=== PATIENT | female | born 1970 | race Caucasian/White ===

== ENCOUNTER 2018-09-26 08:04 | Observation (INO) ==
[2018-09-26] MEDS ORDERED: ASPIRIN CHEW 324 MG PO STA (08:17)
--- NOTE | 2018-09-26 08:19 | Emergency Department Note ---
Entered by Malissa Acevedo acting as a scribe for Dominic Parikh MD History of Present Illness General Chief complaint: Cardiac Assessment Stated complaint: CHEST PRESSURE- HX OF HTN Time Seen by Provider: 09/26/18 08:08 Source: patient History of Present Illness Provider complaint: chest pressure Onset (ago): hour(s) 1 Location: chest Radiation: extremity (shoulder) Quality: + other (pressure) Associated symptoms: no diaphoresis, no nausea/vomiting and no shortness of breath The patient is a 48 year old female who presents to the Emergency Room with complaints of chest pressure beginning this morning 1 hour prior to arrival. The patient states that the pressure also radiates to her shoulder. She states that she "does not feel right" and states that she has not had this before. She reports a history of hypertension and states that she is pre-diabetic. The patient denies having shortness of breath and denies having pain when she breaths. She also denies having nausea, vomiting, and diaphoresis. The patient states that she was burping on the way here and states that she has not eaten anything unusual lately. The patient denies recent travel or trauma, and also denies having swelling in her legs. The patient states that she did not take aspirin prior to arrival. She denies a history of a stress test or a catheterization. Home Medications Home Medications Medication Instructions Recorded Confirmed Type atorvastatin [Lipitor] 40 mg PO HS 09/26/18 09/26/18 History hydrochlorothiazide 25 mg PO DAILY 09/26/18 09/26/18 History lisinopril 10 mg PO DAILY 09/26/18 09/26/18 History metformin 500 mg PO BID 09/26/18 09/26/18 History Allergies Allergy/AdvReac Type Severity Reaction Status Date / Time No Known Allergies Allergy Unverified 09/26/18 08:16 Past Med/Surg History Medical History Obesity (Chronic) Hyperlipidemia (Chronic) Diabetes mellitus type 2 in obese (Chronic) HTN (hypertension) (Chronic) Anal carcinoma Aortic stenosis Atrial fibrillation ESRD (end stage renal disease) Lupus 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) PVD (peripheral vascular disease) Renal transplant disorder SAH (subarachnoid hemorrhage) Surgical History Hx of cardiac cath Family History Other Heart disease Social History Current Living Situation: Spouse and Family Other Information That Helps Us Care for You: No Feels Safe at Home: Yes Safety Concerns: Feels Safe At This Time Smoking Status: Former smoker Do You Dip or Chew Tobacco: No Second Hand Exposure: No Tobacco Cessation Education Requested by Patient: No Hx Alcohol Use: Yes Alcohol Intake Frequency: other Hx Substance Use: No Beliefs That Will Affect Care: None Preferred Language: Barbadian Communication Ability: Effective Senior Sales Operations Manager Required: No Review of Systems See HPI for pertinent positives & negatives. and A total of 10 systems reviewed and were otherwise negative Physical Exam Vital Signs Vital Signs - 24 hr 09/26/18 08:10 09/26/18 08:13 09/26/18 08:20 Temperature 36.8 C Temperature Source Oral Sepsis Recent Fever Within 48 Hours No Sepsis Action Taken by Nursing No Action Required Pulse Rate 119 H 115 H Pulse Rate [Apical] Pulse Rhythm [Apical] Pulse Strength [Apical] Respiratory Rate 19 22 Respiratory Effort / Characteristics Non-Labored Non-Labored Respiratory Depth Normal Normal Respiratory Pattern Blood Pressure 160/111 H 160/117 H Blood Pressure [Right Arm] Blood Pressure Mean 127 131 Blood Pressure Mean [Right Arm] Blood Pressure Position [Right Arm] Pulse Oximetry 97 97 Oxygen Delivery Method Room Air 09/26/18 08:30 09/26/18 08:53 09/26/18 09:00 Temperature Temperature Source Sepsis Recent Fever Within 48 Hours Sepsis Action Taken by Nursing Pulse Rate 100 H 101 H 96 H Pulse Rate [Apical] Pulse Rhythm [Apical] Pulse Strength [Apical] Respiratory Rate 22 17 9 L Respiratory Effort / Characteristics Respiratory Depth Respiratory Pattern Blood Pressure 138/96 Blood Pressure [Right Arm] Blood Pressure Mean 110 Blood Pressure Mean [Right Arm] Blood Pressure Position [Right Arm] Pulse Oximetry 96 Oxygen Delivery Method 09/26/18 09:08 09/26/18 09:30 09/26/18 10:00 Temperature Temperature Source Sepsis Recent Fever Within 48 Hours Sepsis Action Taken by Nursing Pulse Rate 96 H 99 H 102 H Pulse Rate [Apical] Pulse Rhythm [Apical] Pulse Strength [Apical] Respiratory Rate 19 26 H 19 Respiratory Effort / Characteristics Respiratory Depth Respiratory Pattern Blood Pressure 121/106 H 120/78 123/90 Blood Pressure [Right Arm] Blood Pressure Mean 111 92 101 Blood Pressure Mean [Right Arm] Blood Pressure Position [Right Arm] Pulse Oximetry 93 95 95 Oxygen Delivery Method 09/26/18 10:30 09/26/18 11:17 09/26/18 11:19 Temperature Temperature Source Sepsis Recent Fever Within 48 Hours Sepsis Action Taken by Nursing Pulse Rate 95 H 97 H 102 H Pulse Rate [Apical] Pulse Rhythm [Apical] Pulse Strength [Apical] Respiratory Rate 19 7 L 18 Respiratory Effort / Characteristics Respiratory Depth Respiratory Pattern Blood Pressure 135/92 127/88 Blood Pressure [Right Arm] Blood Pressure Mean 106 101 Blood Pressure Mean [Right Arm] Blood Pressure Position [Right Arm] Pulse Oximetry 94 96 95 Oxygen Delivery Method 09/26/18 11:30 09/26/18 12:00 09/26/18 12:30 Temperature Temperature Source Sepsis Recent Fever Within 48 Hours Sepsis Action Taken by Nursing Pulse Rate 98 H 99 H 108 H Pulse Rate [Apical] Pulse Rhythm [Apical] Pulse Strength [Apical] Respiratory Rate 16 17 18 Respiratory Effort / Characteristics Respiratory Depth Respiratory Pattern Blood Pressure 120/82 133/72 130/86 Blood Pressure [Right Arm] Blood Pressure Mean 94 92 100 Blood Pressure Mean [Right Arm] Blood Pressure Position [Right Arm] Pulse Oximetry 94 94 94 Oxygen Delivery Method 09/26/18 12:31 09/26/18 13:00 09/26/18 13:08 Temperature Temperature Source Sepsis Recent Fever Within 48 Hours Sepsis Action Taken by Nursing Pulse Rate 101 H Pulse Rate [Apical] 105 H Pulse Rhythm [Apical] Regular Pulse Strength [Apical] Normal Respiratory Rate 18 16 Respiratory Effort / Characteristics Non-Labored Respiratory Depth Normal Respiratory Pattern Blood Pressure 126/74 Blood Pressure [Right Arm] 130/86 Blood Pressure Mean 91 Blood Pressure Mean [Right Arm] 100 Blood Pressure Position [Right Arm] Sitting Pulse Oximetry 94 94 Oxygen Delivery Method Room Air Room Air 09/26/18 13:25 09/26/18 13:40 09/26/18 14:22 Temperature 37.2 C Temperature Source Oral Sepsis Recent Fever Within 48 Hours Sepsis Action Taken by Nursing Pulse Rate Pulse Rate [Apical] 118 H 116 H 106 H Pulse Rhythm [Apical] Regular Regular Regular Pulse Strength [Apical] Normal Normal Normal Respiratory Rate 18 Respiratory Effort / Characteristics Non-Labored Respiratory Depth Normal Respiratory Pattern Regular Blood Pressure Blood Pressure [Right Arm] 125/92 110/77 138/85 Blood Pressure Mean Blood Pressure Mean [Right Arm] 103 88 102 Blood Pressure Position [Right Arm] Sitting Sitting Sitting Pulse Oximetry 98 Oxygen Delivery Method Room Air General: Non-ill appearing middle aged female in no acute distress. HEENT: Normal cephalic atraumatic. Pupils are equal round and reactive to light. Extraocular movements are intact. Oropharynx is pink with moist mucous membranes. No swelling of the mouth lips or tongue. Neck: Supple with a midline trachea. No meningeal signs or stiffness, no JVD or bruits. No Stridor. Chest: Clear to auscultation bilaterally. No wheezes or rhonchi. No increased work of breathing. Heart: regular rate and rhythm. Abdomen: Soft nontender, nondistended without rebound guarding or rigidity. Extremities: No cyanosis clubbing or edema. No calf tenderness or assymetry Spine/Back. Non tender to palpation. No CVA tenderness Skin: Good turgor without rashes. Neurologic exam: Cranial nerves two through 12 are intact. Motor and sensation are intact and symmetrical throughout. Course 0809: Past medical records reviewed. The patient was evaluated in room A9B, and a complete history and physical examination were performed. 0856: I checked on the patient. She feels better. Her heart rate and blood pressure have come down. 0946: I reassessed the patient. 1020: I updated the patient. She appears comfortable. She verbalized agreement and understanding of the treatment plan and will be admitted. 1031: I discussed the patient's case with Dr. Cleaning who will evaluate the patient for further management. Consultations Consultation #1: Dr. Cleaning Time: 10:31 Administered Medications Insulin Aspart (Novolog Flexpen) 0 units SC ACHS [facility] Stop: 10/26/18 13:22 Last Admin: 09/26/18 14:13 Dose: 1 units Discontinued Medications Aspirin (Aspirin) 324 mg PO NOW STA Stop: 09/26/18 08:18 Last Admin: 09/26/18 08:34 Dose: 324 mg Metoprolol Tartrate (Lopressor) 25 mg PO Q8H [facility] Stop: 10/26/18 13:59 Last Admin: 09/26/18 14:35 Dose: 12.5 mg Morphine Sulfate (Morphine Sulfate) 2 mg IV NOW STA Stop: 09/26/18 11:04 Last Admin: 09/26/18 11:19 Dose: 2 mg Nitroglycerin (Nitrostat) Confirm Administered Dose 0.4 mg .ROUTE .[facility] Stop: 09/26/18 13:28 Last Admin: 09/26/18 13:28 Dose: 0.4 mg Potassium Chloride (Klor-Con M20) 40 meq PO QAM HARIS Stop: 10/26/18 10:29 Last Admin: 09/26/18 13:29 Dose: Not Given Potassium Chloride (Klor-Con M20) 40 meq PO NOW STA Stop: 09/26/18 11:06 Last Admin: 09/26/18 12:27 Dose: 40 meq Medical Decision Making Differential Diagnosis The patient is a 48 year old female who presents to the ED with chest pressure. Differential diagnosis includes acute coronary syndrome, arrhythmia, PE, pulmonary disease, aortic disease, anxiety, GERD, electrolyte or metabolic abnormalities. Medical Records Attestation: I reviewed the patient's medical records. Home Medications Current Medication List: was personally reviewed by me Laboratory Data Attestation: I reviewed the patient's lab results. Result diagrams: 09/26/18 09:08 09/26/18 09:08 Lab Results 09/26/18 09/26/18 09/26/18 Range/Units 09:08 09:08 09:08 WBC 7.22 (4.8-10.8) K/uL RBC 4.83 (4.2-5.4) M/uL Hgb 14.2 (12.0-16.0) g/dL Hct 41.9 (37-47) % MCV 86.7 (80-100) fL MCH 29.4 (25-34) pg MCHC 33.9 (32-36) g/dL RDW Std Deviation 42.6 (36.4-46.3) fL RDW Coeff of Beatriz 13.4 (11.5-14.5) % Plt Count 205 (130-400) K/uL MPV 11.8 H (7.4-10.4) fL Immature Gran % (Auto) 0.3 % Neut % (Auto) 69.3 % Lymph % (Auto) 24.9 % Winston % (Auto) 3.6 % Eos % (Auto) 1.5 % Baso % (Auto) 0.4 % Immature Gran # (Auto) 0.02 (0.00-0.02) K/uL Neut # (Auto) 5.00 (1.4-6.5) K/uL Lymph # (Auto) 1.80 (1.2-3.4) K/uL Winston # (Auto) 0.26 (0.11-0.59) K/uL Eos # (Auto) 0.11 (0-0.5) K/uL Baso # (Auto) 0.03 (0-0.2) K/uL PT Cancelled INR Cancelled APTT Cancelled PTT Ratio Cancelled D-Dimer Cancelled Sodium 136 (136-145) mmol/L Potassium 3.2 L (3.5-5.1) mmol/L Chloride 100 (98-107) mmol/L Carbon Dioxide 26 (21-32) mmol/L Anion Gap 10.0 (3-11) BUN 11 (7-18) mg/dl Creatinine 0.69 (0.6-1.2) mg/dl Est Cr Clr Drug Dosing Not Reportable Est GFR ( Amer) 121.0 Est GFR (Non-Af Amer) 104.4 BUN/Creatinine Ratio 15.4 (10-20) Glucose 195 H (70-99) mg/dl POC Glucose (70-99) Calcium 8.7 (8.5-10.1) mg/dl Total Bilirubin 0.6 (0.1-1) mg/dl AST 38 H (15-37) U/L ALT 47 (12-78) U/L Alkaline Phosphatase 100 (45-117) U/L Total Creatine Kinase 57 (26-192) U/L CK-MB (CK-2) < 1.0 (0.5-3.6) ng/ml CK/CKMB % Calc TNP POC Troponin I (0-0.045) ng/ml Troponin I < 0.015 (0-0.045) ng/ml Total Protein 7.5 (6.4-8.2) gm/dl Albumin 3.6 (3.4-5.0) gm/dl Globulin 3.9 (2.5-4.0) gm/dl Albumin/Globulin Ratio 0.9 (0.9-2) Lipase 134 (73-393) U/L 09/26/18 09/26/18 09/26/18 Range/Units 09:15 09:40 13:35 WBC (4.8-10.8) K/uL RBC (4.2-5.4) M/uL Hgb (12.0-16.0) g/dL Hct (37-47) % MCV (80-100) fL MCH (25-34) pg MCHC (32-36) g/dL RDW Std Deviation (36.4-46.3) fL RDW Coeff of Beatriz (11.5-14.5) % Plt Count (130-400) K/uL MPV (7.4-10.4) fL Immature Gran % (Auto) % Neut % (Auto) % Lymph % (Auto) % Winston % (Auto) % Eos % (Auto) % Baso % (Auto) % Immature Gran # (Auto) (0.00-0.02) K/uL Neut # (Auto) (1.4-6.5) K/uL Lymph # (Auto) (1.2-3.4) K/uL Winston # (Auto) (0.11-0.59) K/uL Eos # (Auto) (0-0.5) K/uL Baso # (Auto) (0-0.2) K/uL PT 11.0 INR 1.1 APTT 24.3 PTT Ratio 0.9 D-Dimer < 190 Sodium (136-145) mmol/L Potassium (3.5-5.1) mmol/L Chloride (98-107) mmol/L Carbon Dioxide (21-32) mmol/L Anion Gap (3-11) BUN (7-18) mg/dl Creatinine (0.6-1.2) mg/dl Est Cr Clr Drug Dosing Est GFR ( Amer) Est GFR (Non-Af Amer) BUN/Creatinine Ratio (10-20) Glucose (70-99) mg/dl POC Glucose 138 H (70-99) Calcium (8.5-10.1) mg/dl Total Bilirubin (0.1-1) mg/dl AST (15-37) U/L ALT (12-78) U/L Alkaline Phosphatase (45-117) U/L Total Creatine Kinase (26-192) U/L CK-MB (CK-2) (0.5-3.6) ng/ml CK/CKMB % Calc POC Troponin I < 0.03 (0-0.045) ng/ml Troponin I (0-0.045) ng/ml Total Protein (6.4-8.2) gm/dl Albumin (3.4-5.0) gm/dl Globulin (2.5-4.0) gm/dl Albumin/Globulin Ratio (0.9-2) Lipase (73-393) U/L 09/26/18 Range/Units 13:50 WBC (4.8-10.8) K/uL RBC (4.2-5.4) M/uL Hgb (12.0-16.0) g/dL Hct (37-47) % MCV (80-100) fL MCH (25-34) pg MCHC (32-36) g/dL RDW Std Deviation (36.4-46.3) fL RDW Coeff of Beatriz (11.5-14.5) % Plt Count (130-400) K/uL MPV (7.4-10.4) fL Immature Gran % (Auto) % Neut % (Auto) % Lymph % (Auto) % Winston % (Auto) % Eos % (Auto) % Baso % (Auto) % Immature Gran # (Auto) (0.00-0.02) K/uL Neut # (Auto) (1.4-6.5) K/uL Lymph # (Auto) (1.2-3.4) K/uL Winston # (Auto) (0.11-0.59) K/uL Eos # (Auto) (0-0.5) K/uL Baso # (Auto) (0-0.2) K/uL PT INR APTT PTT Ratio D-Dimer Sodium (136-145) mmol/L Potassium (3.5-5.1) mmol/L Chloride (98-107) mmol/L Carbon Dioxide (21-32) mmol/L Anion Gap (3-11) BUN (7-18) mg/dl Creatinine (0.6-1.2) mg/dl Est Cr Clr Drug Dosing Est GFR ( Amer) Est GFR (Non-Af Amer) BUN/Creatinine Ratio (10-20) Glucose (70-99) mg/dl POC Glucose (70-99) Calcium (8.5-10.1) mg/dl Total Bilirubin (0.1-1) mg/dl AST (15-37) U/L ALT (12-78) U/L Alkaline Phosphatase (45-117) U/L Total Creatine Kinase (26-192) U/L CK-MB (CK-2) (0.5-3.6) ng/ml CK/CKMB % Calc POC Troponin I (0-0.045) ng/ml Troponin I < 0.015 (0-0.045) ng/ml Total Protein (6.4-8.2) gm/dl Albumin (3.4-5.0) gm/dl Globulin (2.5-4.0) gm/dl Albumin/Globulin Ratio (0.9-2) Lipase (73-393) U/L Imaging Data Radiologist's Impression: Radiology results as stated below per my review and the radiologist's interpretation: XR chest 1V portable CLINICAL HISTORY: Chest pain. COMPARISON STUDY: No previous studies for comparison. FINDINGS: A 2.5 cm chondroid lesion within the left humeral head statistically reflects an enchondroma. There is no pneumothorax or pleural effusion. Mild left basilar opacity favors atelectasis. There is mild cardiomegaly without evidence for pulmonary edema. IMPRESSION: 1. Mild left basilar opacity which favors atelectasis. 2. Mild cardiomegaly without evidence for pulmonary edema. Electronically signed by: Solo Meeks M.D. 09/26/2018 9:20 AM ECG Data Attestation: I personally reviewed and interpreted this ECG as follows: Indication: chest pain Rate (beats per minute): 114 Rhythm: sinus tachycardia Findings: no PAC, no PVC, no ST depression, no ST elevation, no acute ischemic change and no ectopy Comparison ECG Date: no prior available Additional Comments: repeat ECG: NSR, 90, no ischemia, no ectopy, no significant change from first ECG Blood Pressure Blood Pressure Findings: Elevated blood pressure Blood Pressure Disposition: further management by hospitalist [facility] Narrative This patient comes in as described above. She was placed in room A9. She has complaints of chest pressure. She looks well on exam. she is mildly tachycardic and hypertensive. She does have history of high blood pressure. Her initial EKG does not suggest acute coronary syndrome or significant arrhythmia. IV access was established was given aspirin 324 mg chewable multiple blood testing was obtained including cardiac biomarkers as well as d- dimer. She was reassessed frequently. D-dimer was within normal limits and a low pretest probability setting makes PE highly unlikely. Her second EKG does not show any ischemic changes and no progression compared to EKG #1. Initial cardiac biomarkers are negative. There is no acute ocular metabolic ab normalities. Chest x-ray was unremarkable and does not suggest congestive heart failure pneumonia or pneumothorax. She does have several cardiac risk factors including hypertension, type II borderline diabetes, increased cholesterol and family history. Given this and her presentation, I do think she warrants a observation/cardiac rule out. I did consult the [facility] to see her in the ER for these measures. Impression & Plan Chest pain, precordial Discharge Plan Visit Data *Final* Discharge Date/Time: 09/26/18 13:08 Chief Complaint: Cardiac Assessment Stated Complaint: CHEST PRESSURE- HX OF HTN ED Provider: Dominic Parikh Discharge Problem: Chest pain, precordial Patient Disposition: Admitted As Inpatient Discharge Instructions Interventions: ED Discharge Assessment Last Done: 09/26/18 13:08 The scribe's documentation has been prepared under my direction and personally reviewed by me in its entirety. I confirm that the note above accurately reflects all work, treatment, procedures, and medical decision making performed by me.
[2018-09-26 09:18] LABS: Basophils # (auto) 0.03 K/uL (0-0.2); Basophils % (auto) 0.4 %; Eosinophils # (auto) 0.11 K/uL (0-0.5); Eosinophils % (auto) 1.5 %; Hematocrit (blood only) 41.9 % (37-47); Hemoglobin 14.2 g/dL (12.0-16.0); Immature Granulocytes # (auto) 0.02 K/uL (0.00-0.02); Immature Granulocytes % (auto) 0.3 %; Lymphocytes % (auto) 24.9 %; Mean Corpuscular Hgb Conc 33.9 g/dL (32-36); Mean Corpuscular Volume 86.7 fL (80-100); Mean Platelet Volume 11.8 fL (7.4-10.4); Monocytes # (auto) 0.26 K/uL (0.11-0.59); Monocytes % (auto) 3.6 %; Neutrophils % (auto) 69.3 %; Platelet Count 205 K/uL (130-400); RDW Coefficient of Variation 13.4 % (11.5-14.5); RDW Standard Deviation 42.6 fL (36.4-46.3); Red Blood Count 4.83 M/uL (4.2-5.4); White Blood Count 7.22 K/uL (4.8-10.8)
--- NOTE | 2018-09-26 09:21 | XRay Report ---
XR chest 1V portable CLINICAL HISTORY: Chest pain. COMPARISON STUDY: No previous studies for comparison. FINDINGS: A 2.5 cm chondroid lesion within the left humeral head statistically reflects an enchondrom a. There is no pneumothorax or pleural effusion. Mild left basilar opacity favors atelectasis. There is mild cardiomegaly without evidence for pulmonary edema. IMPRESSION: 1. Mild left basilar opacity which favors atelectasis. 2. Mild cardiomegaly without evidence for pulmonary edema. Electronically signed by: Solo Meeks M.D. 09/26/2018 9:20 AM
[2018-09-26 09:32] LABS: Alanine Aminotransferase 47 U/L (12-78); Albumin Level 3.6 gm/dl (3.4-5.0); Aspartate Aminotransferase 38 U/L (15-37); BUN Creatinine Ratio 15.4 (10-20); Blood Urea Nitrogen 11 mg/dl (7-18); Calcium 8.7 mg/dl (8.5-10.1); Carbon Dioxide 26 mmol/L (21-32); Chloride 100 mmol/L (98-107); Est GFR (Non-African American) 104.4; Glucose 195 mg/dl (70-99); Potassium 3.2 mmol/L (3.5-5.1); Sodium 136 mmol/L (136-145)
[2018-09-26 09:36] LABS: Albumin Globulin Ratio 0.9 (0.9-2); Alkaline Phosphatase 100 U/L (45-117); Bilirubin,Total 0.6 mg/dl (0.1-1); Creatine Kinase 57 U/L (26-192); Creatine Kinase MB < 1.0 ng/ml (0.5-3.6); Globulin 3.9 gm/dl (2.5-4.0); Total Protein 7.5 gm/dl (6.4-8.2); Troponin I < 0.015 ng/ml (0-0.045)
[2018-09-26 10:03] LABS: D Dimer < 190 ug/L FEU (0-500); INR 1.1 (0.9-1.1); Partial Thromboplastin Ratio 0.9; Partial Thromboplastin Time 24.3 Seconds (21.0-31.0)
[2018-09-26] MEDS ORDERED: POTASSIUM CHLORIDE 20 MEQ TABCR PO SCH (10:30)
[2018-09-26] MEDS ORDERED: MoRPHine SULFATE 2 MG/ML CARP IV STA (11:03)
[2018-09-26] MEDS ORDERED: POTASSIUM CHLORIDE 20 MEQ TABCR PO STA (11:05)
--- NOTE | 2018-09-26 11:38 | History & Physical Report ---
Date of Service September 26, 2018 Assessment & Plan (1) Chest pain, precordial: Risk factors for CAD include diabetes, obesity, hyperlipidemia, family history. She is compliant her Lipitor. She is a non-smoker. She has not noticed any decline in activity status in the last 6 months but admittedly is not very active in general. Initial workup is not consistent with acute ischemia. However, chest pressure is still present. Will give some morphine now and try nitro as needed. Monitor on telemetry. Consult cardiology for possible stress test in the morning for risk stratification after rule out ACS. Continue Lipitor. Aspirin 325 was already given. Continue aspirin 81 while inpatient. (2) Diabetes mellitus type 2 in obese: Last A1c in December 2017 was 7. Will repeat A1c in the morning. While inpatient will hold metformin and continue Lantus as well as NovoLog for carb coverage as well as sliding scale coverage. (3) Hyperlipidemia: Compliant with Lipitor 40. Continue this as inpatient. (4) Hypokalemia: Possibly related to diuretics. No recent vomiting or diarrhea. Replace. Check mag in a.m. (5) HTN (hypertension): Initially was elevated but this was on ER intake. She is now more controlled without medication. Continue her home medications and monitor overnight. (6) Obesity: (7) DVT prophylaxis: Lovenox Full code Disposition-to telemetry, likely home in a.m. as long as rule out overnight. Pending cardiology evaluation. DO [facility] History of Present Illness Chief Complaint: Chest pressure Primary Care Provider: Joce Bautista The patient is a 48-year-old diabetic, non-smoker female who presents with chest pressure that began approximately 2 hours prior to arrival. Patient reports waking up this morning and feeling fine. She then took a shower and went into her living room and sat down when she noticed the chest pressure. She describes it as pressure not a pain. It is located in the left anterior chest and radiates to her left shoulder. There is no associated symptoms including no shortness of breath, lightheadedness, nausea, palpitations, numbness or tingling in her fingers, diaphoresis. She reports that exertion is not been worsening it, and there is no other alleviating or triggering factors. She denies a history of chest pain in the past. She is a lifelong non- smoker. Her father had heart problems beginning in his 50s and ultimately underwent a CABG for heart disease. It was reported that symptoms had resolved prior to arrival however the patient still reports some chest pressure that has never eased up since arrival it is been going on for a couple of hours. Recent diagnosis of diabetes with an A1c of 7 back in spring 2017. She is on metformin 500 twice daily. Allergies Allergy/AdvReac Type Severity Reaction Status Date / Time No Known Allergies Allergy Unverified 09/26/18 08:16 Home Medications Home Medications Medication Instructions Recorded Confirmed Type atorvastatin [Lipitor] 40 mg PO HS 09/26/18 09/26/18 History hydrochlorothiazide 25 mg PO DAILY 09/26/18 09/26/18 History lisinopril 10 mg PO DAILY 09/26/18 09/26/18 History metformin 500 mg PO BID 09/26/18 09/26/18 History Past Med/Surg History Medical History Obesity (Chronic) Hyperlipidemia (Chronic) Diabetes mellitus type 2 in obese (Chronic) HTN (hypertension) (Chronic) Family History Other Heart disease Social History Current Living Situation: Spouse Feels Safe at Home: Yes Smoking Status: Never smoker Review of Systems At least 10 systems were reviewed and negative except as indicated in HPI above. Physical Exam 2 Vital Signs (Past 24 Hours): Last Vital Signs Temp 36.8 C 09/26/18 08:13 Pulse 102 H 09/26/18 11:19 Resp 18 09/26/18 11:19 BP 127/88 09/26/18 11:17 Pulse Ox 95 09/26/18 11:19 CONSTITUTIONAL: obese, vitals as above, generally well-appearing EYES: PERRL, normal conjuctivae, no scleral icterus ENT: oropharynx clear, MMM NECK: trachea midline RESPIRATORY: clear to auscultation bilaterally, no crackles, rales or wheezes, normal respiratory effort CARDIOVASCULAR: regular rate and rhythm, S1 and 2 heard without murmurs, gallops or rubs, no JVD, no peripheral edema CHEST: inspection of chest was normal GASTROINTESTINAL: normal bowel sounds, soft, nontender, nondistended MUSCULOSKELETAL: strength 5/5 throughout, head is normocephalic and atraumatic , normal palpation of chest wall without tenderness SKIN: warm and dry NEUROLOGIC: No facial palsy, no dysarthria. CN 2-12 grossly intact, normal cognition, normal speech PSYCHIATRIC: alert cooperative and oriented to person, place and time. Euthymic mood, makes good eye contact, language intact, recent and remote memory grossly intact. Results & Data Laboratory Results Short CBC 09/26/18 Range/Units 09:08 WBC 7.22 (4.8-10.8) K/uL Hgb 14.2 (12.0-16.0) g/dL Hct 41.9 (37-47) % Plt Count 205 (130-400) K/uL BMP 09/26/18 09:08 Sodium 136 Potassium 3.2 L Chloride 100 Carbon Dioxide 26 BUN 11 Creatinine 0.69 Glucose 195 H Calcium 8.7 Cardiac Enzymes 09/26/18 Range/Units 09:08 Total Creatine Kinase 57 (26-192) U/L CK-MB (CK-2) < 1.0 (0.5-3.6) ng/ml Troponin I < 0.015 (0-0.045) ng/ml Liver Function 09/26/18 Range/Units 09:08 Total Bilirubin 0.6 (0.1-1) mg/dl AST 38 H (15-37) U/L ALT 47 (12-78) U/L Alkaline Phosphatase 100 (45-117) U/L Albumin 3.6 (3.4-5.0) gm/dl Code Status & VTE Plan Code Status Full code VTE Prophylaxis Plan VTE Prophylaxis will be ordered: Yes Critical Care Time Critical Care Time: No
[2018-09-26] MEDS ORDERED: PNEUMOCOCCAL ADMINISTRATION CHARGE ONE (12:15)
[2018-09-26] MEDS ORDERED: PNEUMOCOCCAL POLYSACCHARIDES 25 MCG/0.5 ML VIAL/SYR IM ONE (12:15)
[2018-09-26] MEDS ORDERED: NITROGLYCERIN SL 0.4 MG/TAB TAB SL PRN (13:23)
[2018-09-26] MEDS ORDERED: GLUCAGON FOR INJ 1 MG VIAL SQ PRN (13:23)
[2018-09-26] MEDS ORDERED: ACETAMINOPHEN 325 MG TAB PO PRN (13:23)
[2018-09-26] MEDS ORDERED: GLUCOSE 40% GEL 15 GM TUBE PO PRN (13:23)
[2018-09-26] MEDS ORDERED: DEXTROSE 50% 50 ML SYRINGE IV PRN (13:23)
[2018-09-26] MEDS ORDERED: CARBOHYDRATES FOR HYPOGLYCEMIA PO PRN (13:23)
[2018-09-26] MEDS ORDERED: GLUCOSE 10 TABS/TUBE PO PRN (13:23)
[2018-09-26] MEDS ORDERED: MoRPHine SULFATE 2 MG/ML CARP IV PRN (13:23)
[2018-09-26] MEDS ORDERED: ONDANSETRON INJ 2 MG/ML 2 ML VIAL IV PRN (13:23)
[2018-09-26] MEDS ORDERED: POLYETHYLENE (MIRALAX) 17 GM PACK PO PRN (13:23)
[2018-09-26] MEDS ORDERED: NITROGLYCERIN SL 0.4 MG/TAB TAB ONE (13:27)
--- NOTE | 2018-09-26 13:57 | Cardiology Consultation ---
Date of Consultation September 26, 2018 Assessment & Plan (1) STEMI (ST elevation myocardial infarction): Patient presents emergency department with initially right shoulder discomfort which is possibly musculoskeletal origin. She also noted to have acute shortness of breath with development of left scapular pain which is ongoing. Her ECG demonstrates presence of a new left bundle branch block. Initial troponins are elevated. In light of ongoing symptoms, ECG changes, and elevated troponin patient will be taken to the cardiac catheterization lab urgently for coronary angiography. (2) New onset left bundle branch block (LBBB): (3) PVD (peripheral vascular disease): Diminished peripheral pulses noted on examination. 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 (4) Paroxysmal atrial fibrillation: Currently sinus rhythm. INR is subtherapeutic at 1.9. (5) Aortic stenosis: Moderate aortic stenosis per most recent echocardiogram performed November 2017. History of Present Illness Reason for Consultation: Left scapular pain, elevated troponin, new left bundle branch block Requesting Physician: Dr. Loretta Carpio Attending Physician: Loretta Carpio DO History of Present Illness Patient presented to the emergency department with right-sided shoulder discomfort. Discomfort began last evening. Pain became quite severe. Notes associated severe shortness of breath which was transient. She came to the emergency department where she was treated with intravenous morphine. Initial ECG demonstrates new left bundle branch block pattern. Initial troponin 0 0.70. Patient subsequently developed left-sided scapular discomfort rated 6/ 10. There is associated shortness of breath. She is feeling quite anxious without diaphoresis. Denies any substernal chest pressure at this time. Ongoing left scapular pain noted. Complex history listed below. Allergies Allergy/AdvReac Type Severity Reaction Status Date / Time No Known Allergies Allergy Unverified 09/26/18 08:16 Home Medications Home Medications Medication Instructions Recorded Confirmed Type atorvastatin [Lipitor] 40 mg PO HS 09/26/18 09/26/18 History hydrochlorothiazide 25 mg PO DAILY 09/26/18 09/26/18 History lisinopril 10 mg PO DAILY 09/26/18 09/26/18 History metformin 500 mg PO BID 09/26/18 09/26/18 History Patient History Medical History Obesity (Chronic) Hyperlipidemia (Chronic) Diabetes mellitus type 2 in obese (Chronic) HTN (hypertension) (Chronic) Anal carcinoma Aortic stenosis Atrial fibrillation ESRD (end stage renal disease) Lupus 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) PVD (peripheral vascular disease) Renal transplant disorder SAH (subarachnoid hemorrhage) Surgical History Hx of cardiac cath Family History Other Heart disease Social History Current Living Situation: Spouse and Family Other Information That Helps Us Care for You: No Feels Safe at Home: Yes Safety Concerns: Feels Safe At This Time Smoking Status: Former smoker Do You Dip or Chew Tobacco: No Second Hand Exposure: No Tobacco Cessation Education Requested by Patient: No Hx Alcohol Use: Yes Alcohol Intake Frequency: other Hx Substance Use: No Beliefs That Will Affect Care: None Preferred Language: Montserratian Communication Ability: Effective 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 Physical Exam 2 Vital Signs (Past 24 Hours): Last Vital Signs Temp 37.2 C 09/26/18 13:25 Pulse 116 H 09/26/18 13:40 Resp 18 09/26/18 13:25 BP 110/77 09/26/18 13:40 Pulse Ox 98 09/26/18 13:25 Physical Exam: General: NAD, AAO x3, well nourished. Chronically ill. HEENT : Normocephalic. Atraumatic. Conjunctiva pink, no scleral icterus. Neck: No carotid bruits, the carotid upstrokes are brisk. No JVD. No HJR Heart: Regular normal S-1 and S-2 no S-3 or S-4 gallop. 2/6 systolic ejection murmur heard best at the right second intercostal space. PMI is not displaced. No RV heave. Lungs: Clear bilateral without rales , rhonchi, or wheeze. Abdomen: Normal bowel sounds. Soft. Nontender. No masses or organomegaly. No abdominal bruits. Extremities: 1= B/L ankle and pedal edema. Pulses: Diminished radial pulses bilaterally. 1/4 right femoral arterial pulse, 1/4 left femoral arterial pulse. Dorsalis pedis =2/4, posterior tibial=2/4. Neuro: Cranial nerves grossly intact. No focal motor deficit. _ (1) STEMI (ST elevation myocardial infarction) Involved coronary artery: unspecified coronary artery Qualified Code(s): I21.3 - ST elevation (STEMI) myocardial infarction of unspecified site (2) Aortic stenosis Cardiac valve disease etiology: nonrheumatic Qualified Code(s): I35.0 - Nonrheumatic aortic (valve) stenosis
[2018-09-26] MEDS ORDERED: NITROGLYCERIN 2% OINTMENT 30GM TUBE EXT SCH (14:00)
[2018-09-26] MEDS ORDERED: METOPROLOL TARTRATE 25 MG TAB PO SCH (14:00)
[2018-09-26] MEDS: INSULIN ASPART 100 UNITS/ML 3 ML PEN SC SCH ×3 (14:13→21:15)
[2018-09-26] MEDS ORDERED: METOPROLOL TARTRATE 1 MG/ML VIAL IV STA (14:15)
[2018-09-26 14:24] LABS: Troponin I < 0.015 ng/ml (0-0.045)
--- NOTE | 2018-09-26 15:10 | Cardiology Consultation ---
Date of Consultation September 26, 2018 Assessment & Plan (1) Chest pain, precordial: 48-year-old female admitted with atypical chest discomfort. Cardiac enzymes are negative x2 sets. No ischemic ST segment changes noted. Consider musculoskeletal etiology versus possible pericarditis. Will order CRP. Resting 2D transthoracic echocardiogram pending at this time. Trend cardiac enzymes x3 sets. (2) Sinus tachycardia: Add low-dose beta-wily therapy, metoprolol 12.5 twice daily. Continue to monitor telemetry. (3) Hyperlipidemia: Continue atorvastatin. (4) HTN (hypertension): (5) Diabetes mellitus type 2 in obese: History of Present Illness Reason for Consultation: Chest discomfort Requesting Physician: Dr. Loretta Carpio Attending Physician: Loretta Carpio, History of Present Illness 48-year-old female presented to the emergency department with chest pressure. Symptoms began approximately 7 AM. She was walking from one room to the next in her home when she noted the sudden onset of left-sided chest pressure, severity 6/10. No associated shortness of breath. Initially felt somewhat foggy mentally. Denies lightheadedness, dizziness, syncope or near syncope. Denies any palpitations. No recent viral illness, fever, chills, cough, rhinorrhea, abdominal pain, GI upset, nausea, vomiting, or diarrhea. Denies any sick contacts. Treated with sublingual nitroglycerin in the ED which had no effect on discomfort. Currently appears comfortable. Discomfort has improved slightly however remains constant. There is no improvement with any positional change. She offers no other concerns/complaints at this time. Allergies Allergy/AdvReac Type Severity Reaction Status Date / Time No Known Allergies Allergy Unverified 09/26/18 08:16 Home Medications Home Medications Medication Instructions Recorded Confirmed Type atorvastatin [Lipitor] 40 mg PO HS 09/26/18 09/26/18 History hydrochlorothiazide 25 mg PO DAILY 09/26/18 09/26/18 History lisinopril 10 mg PO DAILY 09/26/18 09/26/18 History metformin 500 mg PO BID 09/26/18 09/26/18 History Patient History Medical History Obesity (Chronic) Hyperlipidemia (Chronic) Diabetes mellitus type 2 in obese (Chronic) HTN (hypertension) (Chronic) Anal carcinoma (Inactive) Aortic stenosis (Inactive) Atrial fibrillation (Inactive) ESRD (end stage renal disease) (Inactive) Lupus (Inactive) Mesenteric artery thrombosis (Inactive) [place] (myocardial infarction) (Inactive) PVD (peripheral vascular disease) (Inactive) Renal transplant disorder (Inactive) SAH (subarachnoid hemorrhage) (Inactive) Surgical History Hx of cardiac cath (Inactive) Family History Other Heart disease Social History Current Living Situation: Spouse and Family Other Information That Helps Us Care for You: No Feels Safe at Home: Yes Safety Concerns: Feels Safe At This Time Smoking Status: Never smoker Do You Dip or Chew Tobacco: No Second Hand Exposure: No Tobacco Cessation Education Requested by Patient: No Hx Alcohol Use: Yes Alcohol Intake Frequency: other Hx Substance Use: No Beliefs That Will Affect Care: None Preferred Language: Croatian Communication Ability: Effective Care Director Rn Required: No Review of Systems Pertinent positives noted per HPI, conference of 10 system review otherwise negative. Physical Exam 2 Vital Signs (Past 24 Hours): Last Vital Signs Temp 37.2 C 09/26/18 13:25 Pulse 106 H 09/26/18 14:22 Resp 18 09/26/18 13:25 BP 138/85 09/26/18 14:22 Pulse Ox 98 09/26/18 13:25 _ (1) Hyperlipidemia Hyperlipidemia type: pure hypercholesterolemia Qualified Code(s): E78.00 - Pure hypercholesterolemia, unspecified; E78.0 - Pure hypercholesterolemia (2) HTN (hypertension) Hypertension type: essential hypertension Qualified Code(s): I10 - Essential (primary) hypertension
[2018-09-26 15:42] LABS: C Reactive Protein 0.77 mg/dl (0-0.29)
[2018-09-26] MEDS ORDERED: ATORVASTATIN 40 MG TAB PO SCH (21:00)
[2018-09-26] MEDS: METOPROLOL TARTRATE 25 MG TAB PO SCH (21:14)
[2018-09-26] MEDS: INSULIN GLARGINE SOLOSTAR 100 UNITS/ML 3 ML PEN SC SCH (21:16)
[2018-09-27 06:01] LABS: Hematocrit (blood only) 41.9 % (37-47); Hemoglobin 14.1 g/dL (12.0-16.0); Mean Corpuscular Hgb Conc 33.7 g/dL (32-36); Mean Corpuscular Volume 86.9 fL (80-100); Mean Platelet Volume 11.7 fL (7.4-10.4); Platelet Count 234 K/uL (130-400); RDW Coefficient of Variation 13.7 % (11.5-14.5); RDW Standard Deviation 43.3 fL (36.4-46.3); Red Blood Count 4.82 M/uL (4.2-5.4); White Blood Count 8.33 K/uL (4.8-10.8)
[2018-09-27 06:39] LABS: BUN Creatinine Ratio 16.6 (10-20); Calcium 8.8 mg/dl (8.5-10.1); Creatinine Clr Calc Pharmacy 117.8 ml/min; Est GFR (African American) 114.5; Est GFR (Non-African American) 98.8; Magnesium 2.3 mg/dl (1.8-2.4); Potassium 3.2 mmol/L (3.5-5.1)
[2018-09-27 07:34] LABS: Estimated Average Glucose 177 mg/dl
[2018-09-27] MEDS: METOPROLOL TARTRATE 25 MG TAB PO SCH (08:38)
[2018-09-27] MEDS ORDERED: KETOROLAC 30 MG/ML VIAL IV STA (08:55)
[2018-09-27] MEDS ORDERED: POTASSIUM CHLORIDE 10 MEQ TABCR PO STA (08:57)
[2018-09-27] MEDS: INSULIN ASPART 100 UNITS/ML 3 ML PEN SC SCH ×2 (08:57→12:52)
[2018-09-27] MEDS: INSULIN GLARGINE SOLOSTAR 100 UNITS/ML 3 ML PEN SC SCH (08:58)
[2018-09-27] MEDS ORDERED: ASPIRIN 81 MG ECTAB PO SCH (09:00)
[2018-09-27] MEDS ORDERED: LISINOPRIL 10 MG TAB PO SCH (09:00)
[2018-09-27] MEDS ORDERED: ENOXAPARIN INJ 40 MG/0.4 ML SYR SQ SCH (09:00)
[2018-09-27] MEDS ORDERED: ATORVASTATIN 10 MG TAB PO SCH (09:00)
[2018-09-27] MEDS ORDERED: hydroCHLOROthiazide 25 MG TAB PO SCH (09:00)
--- NOTE | 2018-09-27 10:15 | Cardiology Progress Note ---
Date of Service September 27, 2018 Assessment & Plan (1) Chest pain, precordial: 48-year-old female admitted with atypical chest discomfort. Resting 2D transthoracic echocardiogram demonstrates normal wall motion without evidence of pericardial effusion. Cardiac enzymes are undetectable. No ischemic ST changes per repeat ECG. Consider musculoskeletal etiology, GI less likely. No objective evidence of pericarditis at this time. Will give dose of NSAIDs. Outpatient stress test within 1 week. (2) Sinus tachycardia: Continue low-dose beta-wily, metoprolol 12.5 twice daily. Continue to monitor telemetry. (3) Hyperlipidemia: Continue atorvastatin. (4) HTN (hypertension): (5) Diabetes mellitus type 2 in obese: Subjective Patient seen and examined at the bedside. Mild chest discomfort unchanged overnight. She slept through the night without interruption. No shortness of breath or palpitations. No dysrhythmias on telemetry. Denies orthopnea, PND, lower extremity edema. Resting 2D transthoracic echocardiogram demonstrates normal wall motion. Cardiac enzymes are undetectable. No ischemic ECG changes or evidence of pericarditis. Review of Systems All systems reviewed & are unremarkable except as noted in HPI & below Physical Exam 2 Vital Signs (Past 24 Hours): Last Vital Signs Temp 36.9 C 09/27/18 07:02 Pulse 90 09/27/18 07:02 Resp 22 09/27/18 07:02 BP 114/78 09/27/18 07:02 Pulse Ox 95 09/27/18 07:02 Physical Exam: General: NAD, AAO x3, well nourished. HEENT: Normocephalic. Atraumatic. Conjunctiva pink, no scleral icterus. Neck: No carotid bruits, the carotid upstrokes are brisk. No JVD. No HJR Heart: Regular normal S-1 and S-2 no S-3 or S-4 gallop. No murmurs or rub appreciated. PMI is not displaced. No RV heave. Lungs: Clear bilateral without rales , rhonchi, or wheeze. Abdomen: Normal bowel sounds. Soft. Nontender. No masses or organomegaly. No abdominal bruits. Extremities: No clubbing, cyanosis, or edema. Pulses: radial=2/4, Dorsalis pedis =2/4, posterior tibial=2/4. Neuro: Cranial nerves grossly intact. No focal motor deficit. _ (1) Hyperlipidemia Hyperlipidemia type: pure hypercholesterolemia Qualified Code(s): E78.00 - Pure hypercholesterolemia, unspecified; E78.0 - Pure hypercholesterolemia (2) HTN (hypertension) Hypertension type: essential hypertension Qualified Code(s): I10 - Essential (primary) hypertension
[2018-09-27] MEDS ORDERED: IBUPROFEN 200 MG/10 ML UDC PO PRN (13:04)
--- NOTE | 2018-09-27 13:46 | Hospitalist Progress Note ---
Date of Service September 27, 2018 Assessment & Plan (1) Chest pain, precordial: non cardiac chest pain and echocardiogram and stress testing without evidence for ischemia In the hospital aspirin 325 given and then on aspirin 81 while inpatient will stop aspirin given workup to date without evidence for coronary artery disease Patient discharged on metoprolol succinate 25 mg daily because of initial sinus tachycardia and then placed on beta blockers; recommended by cardiology Dr. Gallardo Patient can take ibuprofen 400 mg every 6 hours hours as needed for non cardiac chest pain for 5 days Patient can take pantoprazole 40 mg daily in case chest discomfort from gastric reflux (2) Diabetes mellitus type 2 in obese: Type 2 diabetes ellitus controlled without intermodal owner operator truck driver insulin use HbA1c 7.8 continue metformin as outpatient and recommend that patient re-discuss diabetes regimen with primary care doctor (3) Hyperlipidemia: Continue Lipitor 40 (4) Hypokalemia: Possibly related to diuretics. No recent vomiting or diarrhea remains 3.2 after initial potassium repletion will discharge on 10 meq dialy potassium supplments and patient should have serum potassium checked by primary care doctor (5) HTN (hypertension): Initially was elevated on ER presentation Blood pressure controlled continue home dose lisinopril (6) Obesity: (7) DVT prophylaxis: Lovenox while inpatient Discharge Diagnosis non cardiac chest pain,sinus tachycardia, hypertension, type 2 diabetes mellitus without current use of intermodal owner operator truck driver insulin without complication, Hypokalemia Discharge Instructions Patient discharged on metoprolol succinate 25 mg daily Patient can take ibuprofen 400 mg every 6 hours hours as needed for non cardiac chest pain for 5 days. Patient can take pantoprazole 40 mg daily Patient has follow up appointment with primary care doctor 10/01/2018 2:10 PM Joce Bautista MD [facility] Should take potassium 10 meq daily until follow up with primary care doctor for bmp recheck Subjective Patient seen and examined before and after stress test. Testing did not find evidence for cardiac ischemia. The anterior left sided chest pain remains unchanged from before and after the stress test. Patient tolerating what she describes as a chest discomfort that started yesterday however she has had negative acrdaic pulmonary workup to date. Continues to be breathing on room air and no acute distress. denies shortness of breath or abdominal pain. Heart rate is controlled while on beta wily. Patient is ready to be discharged from hospital for outpatient follow up Physical Exam 2 Vital Signs (Past 24 Hours): Last Vital Signs Temp 37.2 C 09/27/18 11:25 Pulse 86 09/27/18 11:25 Resp 18 09/27/18 11:25 BP 121/86 09/27/18 11:25 Pulse Ox 94 09/27/18 11:25 Constitutional: WD/WN, vitals as above Eyes: PERRL, conjunctivae normal, anicteric sclerae ENMT: external ear and nose normal, oropharynx normal Neck: trachea midline, no thyromegaly Respiratory: normal respiratory effort, lungs clear to auscultation Cardiovascular: RRR, no murmur, no edema Gastrointestinal (Abdomen): normal bowel sounds, soft, nontender, no hepatosplenomegaly Musculoskeletal: no cyanosis or clubbing, extremities motor strength 5/5 Head/Neck/Chest: normocephalic and head atraumatic Neurologic: PERRL, EOMI, accommodation nl, no face palsy, no dysarthria CN' s II-XI intact bilaterally Psychiatric: A+Ox3, euthymic affect _ (1) Hyperlipidemia Hyperlipidemia type: pure hypercholesterolemia Qualified Code(s): E78.00 - Pure hypercholesterolemia, unspecified; E78.0 - Pure hypercholesterolemia (2) HTN (hypertension) Hypertension type: essential hypertension Qualified Code(s): I10 - Essential (primary) hypertension
--- NOTE | 2018-09-27 13:59 | Discharge Summary ---
Date of Service September 27, 2018 Admission HPI Per Admitting Provider The patient is a 48-year-old diabetic, non-smoker female who presents with chest pressure that began approximately 2 hours prior to arrival. Patient reports waking up this morning and feeling fine. She then took a shower and went into her living room and sat down when she noticed the chest pressure. She describes it as pressure not a pain. It is located in the left anterior chest and radiates to her left shoulder. There is no associated symptoms including no shortness of breath, lightheadedness, nausea, palpitations, numbness or tingling in her fingers, diaphoresis. She reports that exertion is not been worsening it, and there is no other alleviating or triggering factors. She denies a history of chest pain in the past. She is a lifelong non- smoker. Her father had heart problems beginning in his 50s and ultimately underwent a CABG for heart disease. It was reported that symptoms had resolved prior to arrival however the patient still reports some chest pressure that has never eased up since arrival it is been going on for a couple of hours. Recent diagnosis of diabetes with an A1c of 7 back in spring 2017. She is on metformin 500 twice daily. Admission Exam Per Admitting Provider CONSTITUTIONAL: obese, vitals as above, generally well-appearing EYES: PERRL, normal conjuctivae, no scleral icterus ENT: oropharynx clear, MMM NECK: trachea midline RESPIRATORY: clear to auscultation bilaterally, no crackles, rales or wheezes, normal respiratory effort CARDIOVASCULAR: regular rate and rhythm, S1 and 2 heard without murmurs, gallops or rubs, no JVD, no peripheral edema CHEST: inspection of chest was normal GASTROINTESTINAL: normal bowel sounds, soft, nontender, nondistended MUSCULOSKELETAL: strength 5/5 throughout, head is normocephalic and atraumatic , normal palpation of chest wall without tenderness SKIN: warm and dry NEUROLOGIC: No facial palsy, no dysarthria. CN 2-12 grossly intact, normal cognition, normal speech PSYCHIATRIC: alert cooperative and oriented to person, place and time. Euthymic mood, makes good eye contact, language intact, recent and remote memory grossly intact. Principal Diagnosis non cardiac chest pain,sinus tachycardia, hypertension, type 2 diabetes mellitus without current use of middle or intermediate school principal insulin without complication, Hypokalemia Discharge Exam Constitutional WD/WN, vitals as above Eyes PERRL, conjunctivae normal, anicteric sclerae ENMT external ear and nose normal, oropharynx normal Neck trachea midline, no thyromegaly Respiratory normal respiratory effort, lungs clear to auscultation Cardiovascular RRR, no murmur, no edema Gastrointestinal (Abdomen) normal bowel sounds, soft, nontender, no hepatosplenomegaly Musculoskeletal no cyanosis or clubbing, extremities motor strength 5/5 Head/Neck/Chest: normocephalic and head atraumatic Neurologic PERRL, EOMI, accommodation nl, no face palsy, no dysarthria CN's II-XI intact bilaterally Psychiatric A+Ox3, euthymic affect Discharge Data Allergies Allergy/AdvReac Type Severity Reaction Status Date / Time No Known Allergies Allergy Unverified 09/26/18 08:16 Consultations 09/26/18 10:17 ED Decision to Admit Stat 09/26/18 10:26 ED Decision to Admit Stat 09/26/18 13:23 Consult Cardiology Routine Hospital Course (1) Chest pain, precordial: non cardiac chest pain and echocardiogram and stress testing without evidence for ischemia In the hospital aspirin 325 given and then on aspirin 81 while inpatient will stop aspirin given workup to date without evidence for coronary artery disease Patient discharged on metoprolol succinate 25 mg daily because of initial sinus tachycardia and then placed on beta blockers; recommended by cardiology Dr. Gallardo Patient can take ibuprofen 400 mg every 6 hours hours as needed for non cardiac chest pain for 5 days Patient can take pantoprazole 40 mg daily in case chest discomfort from gastric reflux (2) Diabetes mellitus type 2 in obese: Type 2 diabetes ellitus controlled without middle or intermediate school principal insulin use HbA1c 7.8 continue metformin as outpatient and recommend that patient re-discuss diabetes regimen with primary care doctor (3) Hyperlipidemia: Continue Lipitor 40 (4) Hypokalemia: Possibly related to diuretics. No recent vomiting or diarrhea remains 3.2 after initial potassium repletion will discharge on 10 meq dialy potassium supplments and patient should have serum potassium checked by primary care doctor (5) HTN (hypertension): Initially was elevated on ER presentation Blood pressure controlled continue home dose lisinopril (6) Obesity: (7) DVT prophylaxis: Lovenox while inpatient Discharge Diagnosis non cardiac chest pain,sinus tachycardia, hypertension, type 2 diabetes mellitus without current use of usp insulin without complication, Hypokalemia Discharge Instructions Patient discharged on metoprolol succinate 25 mg daily Patient can take ibuprofen 400 mg every 6 hours hours as needed for non cardiac chest pain for 5 days. Patient can take pantoprazole 40 mg daily Patient has follow up appointment with primary care doctor 10/01/2018 2:10 PM Joce Bautista MD [facility] Should take potassium 10 meq daily until follow up with primary care doctor for bmp recheck Total Time Total Time Spent Total Time Spent (In Minutes): 40 minutes Total Time Includes: Examination of the Patient, Discharge Planning and Medication Reconciliation Discharge Plan Discharge Items Patient Disposition: Home - Self-Care Reason For Visit: CHEST PAIN Discharge Diagnosis: non cardiac chest pain, type 2 diabetes mellitus without current use of middle or intermediate school principal insulin without complication, hypertension, sinus tachycardia, Hypokalemia Condition: Good Discharge Goals: Decrease discomfort Activity: Resume your previous activity Non-emergency contact: Primary Care Provider Call non-emergency contact if: you have any medication questions Diet: Carb Consistent or DM2 Addtl Provider Instructions: Discharge Instructions Patient discharged on metoprolol succinate 25 mg daily Patient can take ibuprofen 400 mg every 6 hours hours as needed for non cardiac chest pain for 5 days. Patient can take pantoprazole 40 mg daily Patient has follow up appointment with primary care doctor 10/01/2018 2:10 PM Joce Bautista MD [facility] Should take potassium 10 meq daily until follow up with primary care doctor for bmp recheck Prescriptions: New metoprolol succinate 25 mg Tablet Extended Release 24 Hr 25 mg PO QAM 30 Days Qty: 30 RF: 0 ibuprofen 400 mg tablet 400 mg PO Q6H PRN (Reason: Pain) 5 Days Qty: 20 RF: 0 pantoprazole 40 mg Tablet,Delayed Release (Dr/Ec) 40 mg PO QAM 30 Days Qty: 30 RF: 0 potassium chloride [Klor-Con M10] 10 mEq Tablet,Er Particles/Crystals 10 meq PO DAILY 5 Days Qty: 5 RF: 0 Continue lisinopril 10 mg Tablet 10 mg PO DAILY RF: 0 hydrochlorothiazide 25 mg Tablet 25 mg PO DAILY RF: 0 metformin 500 mg Tablet Extended Release 24 Hr 500 mg PO BID RF: 0 atorvastatin [Lipitor] 40 mg Tablet 40 mg PO HS RF: 0 Stand-Alone Forms: [facility] Discharge Orders: Discharge Order (Routine); Ordered 09/27/18 Ordered By: Wilfred Montez Admission Data Admit Date/Time: 09/26/18 11:29 Attending Provider: Wilfred Montez Admit Provider: Loretta Carpio Primary Care Provider: Joce Bautista Other Providers: Loretta Carpio ; Kee Gallardo Service: Telemetry
[2018-09-28] MEDS ORDERED: POTASSIUM CHLORIDE 10 MEQ TABCR PO SCH (09:00)
[2018-09-28] MEDS ORDERED: PANTOprazole 40 MG TAB PO SCH (09:00)
[2018-09-28] MEDS ORDERED: METOPROLOL SUCC 25MG EXT REL TAB PO SCH (09:00)
== END 2018-09-27 14:30 | disposition home or self-care (01) ==
LOC: ED 08:04 → 2S 08:04 → SUATTDRO 11:29 → 2S 13:08

== ENCOUNTER 2019-06-13 13:31 | Inpatient (IN) ==
[2019-06-13] MEDS ORDERED: SODIUM CHLORIDE 0.9% 1000ML 1,000 ML IV ONE (13:55)
[2019-06-13 14:18] LABS: Hematocrit (blood only) 18.8 % (37-47); Hemoglobin 6.2 g/dL (12.0-16.0); Mean Corpuscular Volume 88.7 fL (80-100); Mean Platelet Volume 10.9 fL (7.4-10.4); Nucleated RBC # (auto) 0.64 K/uL (0-0); Nucleated RBC % (auto) 3.3 %; Platelet Count 412 K/uL (130-400); RDW Coefficient of Variation 16.3 % (11.5-14.5); RDW Standard Deviation 48.6 fL (36.4-46.3); Red Blood Count 2.12 M/uL (4.2-5.4); White Blood Count 19.63 K/uL (4.8-10.8)
[2019-06-13 14:20] LABS: INR 1.1 (0.9-1.1); Prothrombin Time 11.2 Seconds (9.0-12.0)
[2019-06-13 14:21] LABS: iSTAT Creatinine 0.5 mg/dl (0.6-1.3); iSTAT Hemoglobin 6.5 g/dl (12.0-16.0); iSTAT Ionized Calcium 1.07 mmol/l (1.12-1.32); iSTAT Potassium 3.5 mEq/L (3.3-5.0)
[2019-06-13 14:29] LABS: Albumin Level 3.1 gm/dl (3.4-5.0); BUN Creatinine Ratio 21.5 (10-20); Blood Urea Nitrogen 17 mg/dl (7-18); Calcium 8.2 mg/dl (8.5-10.1); Carbon Dioxide 22 mmol/L (21-32); Chloride 97 mmol/L (98-107); Creatinine Clr Calc Pharmacy 104.5 ml/min; Est GFR (African American) 100.2; Est GFR (Non-African American) 86.5; Glucose 290 mg/dl (70-99); Magnesium 1.8 mg/dl (1.8-2.4); Potassium 3.5 mmol/L (3.5-5.1); Sodium 133 mmol/L (136-145)
[2019-06-13] MEDS ORDERED: SODIUM CHLORIDE 0.9% 250 ML IV PRN ×2 (14:35→17:25)
[2019-06-13 14:40] LABS: Basophils # (auto) 0.09 K/uL (0-0.2); Basophils % (auto) 0.5 %; Eosinophils # (auto) 0.09 K/uL (0-0.5); Eosinophils % (auto) 0.5 %; Immature Granulocytes % (auto) 2.5 %; Lymphocytes # (auto) 4.94 K/uL (1.2-3.4); Lymphocytes % (auto) 25.2 %; Monocytes # (auto) 0.93 K/uL (0.11-0.59); Monocytes % (auto) 4.7 %; Neutrophils # (auto) 13.08 K/uL (1.4-6.5); Neutrophils % (auto) 66.6 %; Polychromasia 2+
[2019-06-13] MEDS ORDERED: IOVERSOL 100ml IV PRN (14:40)
[2019-06-13 14:45] LABS: Alanine Aminotransferase 30 U/L (12-78); Albumin Globulin Ratio 0.9 (0.9-2); Alkaline Phosphatase 75 U/L (45-117); Aspartate Aminotransferase 12 U/L (15-37); Bilirubin,Total 0.4 mg/dl (0.2-1); Globulin 3.5 gm/dl (2.5-4.0); Total Protein 6.6 gm/dl (6.4-8.2); Troponin I < 0.015 ng/ml (0-0.045)
[2019-06-13] MEDS ORDERED: PANTOprazole 80 MG in DEXTROSE 5% 100 ML IV SCH (14:45)
--- NOTE | 2019-06-13 14:54 | CT Scan Report ---
CT SCAN OF THE ABDOMEN AND PELVIS WITH IV CONTRAST CLINICAL HISTORY: Generalized abdominal pain. GI bleeding. COMPARISON STUDY: No priors. TECHNIQUE: Following the IV administration of 93 cc of Optiray 320, CT scan of the abdomen and pelvi s is performed from the lung bases to the proximal femora. Images are reviewed in the axial, sagittal , and coronal planes. IV contrast was administered without complication. A dose lowering technique wa s utilized adhering to the principles of ALARA. CT DOSE: 1191.62 mGy.cm FINDINGS: Lung bases: The heart is normal in size and without pericardial effusion. There is a tiny hiatal abner ia. The lung bases are clear noting dependent atelectasis. Liver: The contrast-enhanced liver is enlarged, measuring 24.3 cm in length. The liver demonstrates d iffusely diminished attenuation consistent with severe hepatic steatosis. Fatty sparing is seen adjac ent to gallbladder fossa. There is no intrahepatic biliary ductal dilatation. The hepatic veins and p ortal veins are patent. Gallbladder: Unremarkable. Spleen: Normal in size and attenuation. Pancreas: Unremarkable. Adrenal glands: Unremarkable. Kidneys: The contrast enhanced kidneys are normal in size and without hydronephrosis. The kidneys enh ance symmetrically. A 1.5 cm cyst is noted in the left kidney. Abdominal vasculature: The abdominal aorta is normal in course and caliber noting mild to moderate at herosclerotic calcification. Bowel: The small bowel and colon are normal in course and caliber. The appendix is well-visualized a nd normal. Peritoneum: There is no intraperitoneal free air or abdominal ascites. There is a small fat-containin g umbilical hernia. Lymphadenopathy: None. Pelvic viscera: The bladder, uterus, and adnexa are normal as visualized. Small ovarian follicles are observed. Skeletal structures: No lytic or blastic lesions are seen. IMPRESSION: 1. There are no acute infectious or inflammatory findings in the abdomen or pelvis. 2. Hepatomegaly and severe hepatic steatosis. Electronically signed by: Navjot Mccullough M.D. 06/13/2019 2:53 PM
[2019-06-13] MEDS ORDERED: cefTRIAXone SODIUM 1,000 MG/50 ML BAG IV STA (15:10)
--- NOTE | 2019-06-13 16:03 | Gastrointestinal Consultation ---
Date of Consultation June 13, 2019 Assessment & Plan (1) Anemia: (2) Black stools: Pt is a 49 y/o who presented w leukocytosis, symptomatic anemia, black loose stools x 1. CT abd/pelvis w/o acute processes though noted to have hepatomegaly and hepatic steatosis. Hx of NSAIDs use following recent wisdom teeth extraction. - PPI bolus and gtt - Transfuse for goal Hgb >8; monitor H/H - Check stool cx and Cdiff - NPO after midnight for EGD evaluation by Dr. Ramos tomorrow Supervising Physician Co-Signing Physician Notes I performed a history and physical examination of the patient, including specifically on physical exam - soft, nontender abdomen. I have discussed the patient's management with Sandy. Please refer to the nurse practitioner's note for the documented findings and plan of care. EGD tomorrow. History of Present Illness Reason for Consultation: Anemia, black loose stools. Requesting Physician: Dr. Fani Moya Attending Physician: Dr. Arcadio Ramos History of Present Illness Pt is a 49 y/o female who w PMHx of HTN, hyperlipidemia, DM II who presented to ED w c/o light headedness since yesterday, generalized abdominal discomfort and black loose stools x 1 episode. She was noted to have leukocytosis (WBC 19), and acutely anemic w H/H 6.2/18 on evaluation. Baseline Hgb September 2018 was 14. BUN/Cr normal. CT abd/pelvis w/ contrast showed no acute infectious or inflammatory processes, + hepatomegaly and hepatic steatosis. On exam afebrile, no hypotension, but appears to be tachycardic. Pt had recent wisdom teeth removal and for about 4 days was alternating Advil and Ibuprofen. She was also given Augmentin after the surgery. She denies any uses of antiplatelet or anticoagulants Denies any hx of prior endoscopies. Allergies Allergy/AdvReac Type Severity Reaction Status Date / Time No Known Allergies Allergy Unverified 06/13/19 15:04 Home Medications Home Medications Medication Instructions Recorded Confirmed Type atorvastatin [Lipitor] 40 mg PO HS 09/26/18 06/13/19 History hydrochlorothiazide 25 mg PO QAM 09/26/18 06/13/19 History lisinopril 10 mg PO QAM 09/26/18 06/13/19 History metformin 500 mg PO BIDM 09/26/18 06/13/19 History metoprolol succinate 25 mg PO QAM 06/13/19 06/13/19 History Patient History Medical History Obesity (Chronic) Hyperlipidemia (Chronic) Diabetes mellitus type 2 in obese (Chronic) HTN (hypertension) (Chronic) History of tooth extraction Anal carcinoma (Inactive) Aortic stenosis (Inactive) Atrial fibrillation (Inactive) ESRD (end stage renal disease) (Inactive) Lupus (Inactive) Mesenteric artery thrombosis (Inactive) Old [place] (myocardial infarction) (Inactive) PVD (peripheral vascular disease) (Inactive) Renal transplant disorder (Inactive) SAH (subarachnoid hemorrhage) (Inactive) Surgical History Hx of cardiac cath (Inactive) Family History Other Heart disease Social History Preferred Language: Faroese Communication Ability: Effective Cover Seamer Required: No Beliefs That Will Affect Care: None Current Living Situation: Spouse and Family Other Information That Helps Us Care for You: No Feels Safe at Home: Yes Safety Concerns: Feels Safe At This Time Smoking Status: Never smoker Second Hand Exposure: No ; Hx Alcohol Use: Yes Alcohol type: other Hx Substance Use: No Review of Systems Review of Systems: All systems reviewed & are unremarkable except as noted in HPI & below Physical Exam Constitutional: WD/WN, vitals as above well groomed, cooperative and comfortable Eyes: PERRL, conjunctivae normal, anicteric sclerae ENMT: external ear and nose normal, oropharynx normal Respiratory: normal respiratory effort, lungs clear to auscultation Cardiovascular: RRR, no murmur, no edema Gastrointestinal (Abdomen): normal bowel sounds, soft, nontender, no hepatosplenomegaly Skin: no rashes, warm and dry no jaundice Psychiatric: A+Ox3, euthymic affect Lymphatic: no lymphedema Results & Data Vital Signs (Past 12 Hours) Vital Signs Temp Pulse Pulse Resp BP BP Pulse Ox 06/13/19 15:15 121 H 19 121/69 99 06/13/19 14:07 129 H 19 113/75 96 06/13/19 14:00 133 H 20 06/13/19 13:49 132 H 25 H 06/13/19 13:48 134 H 18 123/99 06/13/19 13:35 36.8 C 151 H 20 103/74 96 (1) Anemia Anemia type: unspecified type Qualified Code(s): D64.9 - Anemia, unspecified
[2019-06-13] MEDS: PANTOprazole 40 MG in DEXTROSE 5% 100 ML IV SCH ×2 (16:11→20:53)
--- NOTE | 2019-06-13 16:17 | History & Physical Report ---
Date of Service June 13, 2019 Assessment & Plan (1) Syncope: 49 year old woman with obesity, Hypertension, DM2 who presented with syncopal episodes and dark stool, with recent NSAID use and found to be anemic with hb of 6.2 -Syncopal episodes likely due to acute anemia secondary to GI bleeding -Hb is 6.2. 2 units of blood ordered by ER -BP is stable but still tachycardic. Monitor hemodynamics. Fall precautions -Already got1L of NSS. Will continue IVF in addition to blood transfusion -GI consulted. Planned for EGD tomorrow. Continue PPI IV -CBC q8h for now and transfuse prn to keep Hb>7 and for hemodynamic stability (2) Anemia: -Acute anemia secondary to GI blood loss likely due to recent NSAIDS use -Normocytic anemia -Transfuse and monitor as discussed above (3) Increased anion gap metabolic acidosis: CO2 is 22. Anion GAP is 14. Glucose is 290 -History does not suggest infection. However, hemodynamic instability could result in poor perfusion. increased AGMA more likely due to lactic acidosis, less likely due to DKA -Check lactic acid, beta hydroxybutyrate -Monitor BMP -Continue IVF (4) Leukocytosis: WBC is 19.6. -History not suggestive of infection. Could be reactive -Will monitor for now without antibiotics -Monitor WBC (5) Diabetes mellitus type 2 in obese: Hold metformin for now in view of acute disease process and acidosis -Manage blood glucose per protocol with insulin -Clear liquid diet for now and NPO after midnight for EGD -Check AM HbA1c (6) HTN (hypertension): BP is currently stable but significant tachycardia. -Suspend all BP lowering medications -Monitor hemodynamics and telemetry (7) Hyperlipidemia: Will continue atorvastatin home dose (8) Obesity: Will need education and resources on weight loss measures prior to discharge (9) DVT prophylaxis: SCD for now in view of acute bleed History of Present Illness Chief Complaint: Syncope Primary Care Provider: Joce Bautista MD 49 year old woman with hypertension, obesity, hyperlipidemia, DM2 who presented with syncopal episode and dark stool today. Patient reported that she developed some mild abdominal pain yesterday. Then this morning, she started having dizziness, worse on getting up from sitting/supine position. She also had dark stools this morning. Had an episode of syncope while coming out of rest room this morning, witnessed by , lasted a few seconds, did not hit her head, not associated with jerky or seizure-like movement. also reported she had similar episode while being wheeled to the ER. Patient reports palpitations, fatigue and nausea. Denied any fevers, chills, vomiting, diarrhea Denied any dysuria, frequency, urgency Denied any cough, chest pain, shortness of breath. Patient reported she had some teeth extraction 3 weeks ago and used ibuprofen for a few days which was her first time taking ibuprofen. Has never been diagnosed of peptic ulcer. Denied smoking or illicit drug use. Takes alcohol occasionally. Last alcohol intake is over 1 month ago. Reports adherence to her medications Allergies Allergy/AdvReac Type Severity Reaction Status Date / Time No Known Allergies Allergy Unverified 06/13/19 15:04 Home Medications Home Medications Medication Instructions Recorded Confirmed Type atorvastatin [Lipitor] 40 mg PO HS 09/26/18 06/13/19 History hydrochlorothiazide 25 mg PO QAM 09/26/18 06/13/19 History lisinopril 10 mg PO QAM 09/26/18 06/13/19 History metformin 500 mg PO BIDM 09/26/18 06/13/19 History metoprolol succinate 25 mg PO QAM 06/13/19 06/13/19 History Past Med/Surg History Medical History Obesity (Chronic) Hyperlipidemia (Chronic) Diabetes mellitus type 2 in obese (Chronic) HTN (hypertension) (Chronic) Anal carcinoma (Inactive) Aortic stenosis (Inactive) Atrial fibrillation (Inactive) ESRD (end stage renal disease) (Inactive) Lupus (Inactive) Mesenteric artery thrombosis (Inactive) Old [place] (myocardial infarction) (Inactive) PVD (peripheral vascular disease) (Inactive) Renal transplant disorder (Inactive) SAH (subarachnoid hemorrhage) (Inactive) Surgical History Hx of cardiac cath (Inactive) Family History Other Heart disease Social History Preferred Language: Faroese Communication Ability: Effective Rn Labor Delivery Required: No Beliefs That Will Affect Care: None Current Living Situation: Spouse and Family Feels Safe at Home: Yes Smoking Status: Never smoker Second Hand Exposure: No ; Hx Alcohol Use: Yes Hx Substance Use: No Review of Systems Review of Systems: Constitutional: No fever, no chills, +fatigue and no anorexia Eyes: No diplopia, no eye pain or blurred vision Ear, Nose, Mouth, Throat: No ear discharge or pain, no hearing loss, no nasal congestion, no nasal discharge, no epistaxis, no sore throat and no hoarseness Respiratory: No cough, no dyspnea, no dyspnea on exertion and no hemo ptysis Cardiovascular: No chest pain, no chest pain with activity, + palpitations, + orthostatic dizziness, no edema and no calf pain, +syncope Gastrointestinal: + mild abdominal pain, + nausea, No vomiting, no coffee ground emesis, no constipation, no diarrhea/loose stools, +black stool Genitourinary: No dysuria, no urinary frequency, no urgency Musculoskeletal: No back pain, no joint pain and no muscle weakness Integumentary: No rash Neurologic: No headache, no paralysis, +syncope Psychiatric: No depression, no anxiety Endocrine: No polydipsia, no heat intolerance Hematologic / Lymphatic: +black stools Physical Exam Physical Exam: General: Obese, no acute distress and not ill appearing Eyes: PERRL, +pallore, anicteric sclerae, EOM intact bilaterally ENMT: External ear and nose normal, dry oral mucosa Neck: Normal visual inspection Respiratory: Normal respiratory effort, no respiratory distress, lungs clear to auscultation, no crackles and no wheezes Cardiovascular: Pulse is tachycardic, radial pulse is thready. Heart Sounds: normal S1 and normal S2; no murmurs. Vessels: Pedal pulses present. Extremities: no pedal edema Chest (Breasts): Chest: normal inspection of chest Gastrointestinal (Abdomen): Abdomen is soft, non-tender to palpation, no guarding, no palpable hepatosplenomegaly, normal bowel sounds Musculoskeletal: No cyanosis, all extremities motor strength 5/5 Skin: No rash noted on gross inspection, No ulcers noted Neurologic: Alert and oriented x 3, No focal weakness, sensation grossly intact Psychiatric: Alert and oriented x 3, euthymic affect Lymphatic: No cervical lymphadenopathy Results & Data Vital Signs (Past 12 Hours) Vital Signs Temp Pulse Pulse Resp BP BP Pulse Ox 06/13/19 16:10 121 H 19 115/68 97 06/13/19 15:15 121 H 19 121/69 99 06/13/19 14:07 129 H 19 113/75 96 06/13/19 14:00 133 H 20 06/13/19 13:49 132 H 25 H 06/13/19 13:48 134 H 18 123/99 06/13/19 13:35 36.8 C 151 H 20 103/74 96 Code Status & VTE Plan VTE Prophylaxis Plan VTE Prophylaxis will be ordered: Yes (1) Anemia Anemia type: unspecified type Qualified Code(s): D64.9 - Anemia, unspecified (2) Hyperlipidemia Hyperlipidemia type: pure hypercholesterolemia Qualified Code(s): E78.00 - Pure hypercholesterolemia, unspecified; E78.0 - Pure hypercholesterolemia (3) Leukocytosis Leukocytosis type: unspecified Qualified Code(s): D72.829 - Elevated white blood cell count, unspecified (4) Syncope Syncope type: unspecified Qualified Code(s): R55 - Syncope and collapse (5) HTN (hypertension) Hypertension type: essential hypertension Qualified Code(s): I10 - Essential (primary) hypertension (6) Obesity Body mass index: BMI 39.0-39.9 Obesity classification: adult class 2 (BMI 35 - 39.9) Obesity type: unspecified obesity type Serious obesity comorbidity presence: unspecified whether serious comorbidity present Qualified Code(s): E6 6.9 - Obesity, unspecified; Z68.39 - Body mass index (BMI) 39.0-39.9, adult
[2019-06-13] MEDS ORDERED: GLUCOSE 10 TABS/TUBE PO PRN (17:25)
[2019-06-13] MEDS ORDERED: GLUCAGON FOR INJ 1 MG VIAL SQ PRN (17:25)
[2019-06-13] MEDS ORDERED: GLUCOSE 40% GEL 15 GM TUBE PO PRN (17:25)
[2019-06-13] MEDS ORDERED: DEXTROSE 50% 50 ML SYRINGE IV PRN (17:25)
[2019-06-13] MEDS ORDERED: CARBOHYDRATES FOR HYPOGLYCEMIA PO PRN (17:25)
[2019-06-13] MEDS: INSULIN ASPART 100 UNITS/ML 3 ML PEN SC SCH ×2 (18:34→20:55)
--- NOTE | 2019-06-13 19:46 | Emergency Department Note ---
Entered by Nhi Smith acting as a scribe for Vandana Castelan DO History of Present Illness General Chief complaint: GI Bleed Stated complaint: FEELS FAINT, DIZZY Time Seen by Provider: 06/13/19 13:46 Source: patient History of Present Illness Provider complaint: Dizziness Onset (ago): day(s) 1 Location: head Pain Consistency: + other (Episodic) Exacerbated By: + movement (Standing up) Associated symptoms: + denies other symptoms (Heartburn or reflux, bloating, dental pain and symptoms ) and + other (Racing heart, dark and runny stool, LOC, stomach ache, wisdom teeth extracted 2-3 weeks ago); no cough and no fever/chills The patient is a 49 year old female who presents to the ED with complaints of an episode of dizziness that started 1 day ago. The patient states that the dizziness is exacerbated when changing from a sitting to standing position. The patient notes that her heart feels like it is racing when she stands up. Patient's states that she passed out twice today, once when she tried to stand up in the second time today when he was willing her into the emergency room and she was in a wheelchair. The patient states that she noticed dark, run ny stool this morning and started getting a stomach ache around lunch time. The patient notes that she lost consciousness this morning at home. The patient denies heartburn, acid reflux, bloating, cough, fever and chills. The patient notes that she had her wisdom teeth extracted 2-3 weeks ago, but denies dental pain and symptoms. Patient states during that time she did take anti- inflammatory agents for 4 days, but has not taken them since. Patient otherwise does not frequently use aspirin or NSAIDs. Patient denies any recent use of alcohol. No recent fevers or infections. Patient has never had EGD or colonoscopy. Home Medications Home Medications Medication Instructions Recorded Confirmed Type atorvastatin [Lipitor] 40 mg PO HS 09/26/18 06/13/19 History hydrochlorothiazide 25 mg PO QAM 09/26/18 06/13/19 History lisinopril 10 mg PO QAM 09/26/18 06/13/19 History metformin 500 mg PO BIDM 09/26/18 06/13/19 History metoprolol succinate 25 mg PO QAM 06/13/19 06/13/19 History Allergies Allergy/AdvReac Type Severity Reaction Status Date / Time No Known Allergies Allergy Unverified 06/13/19 15:04 Past Med/Surg History Medical History Obesity (Chronic) Hyperlipidemia (Chronic) Diabetes mellitus type 2 in obese (Chronic) HTN (hypertension) (Chronic) History of tooth extraction Anal carcinoma (Inactive) Aortic stenosis (Inactive) Atrial fibrillation (Inactive) ESRD (end stage renal disease) (Inactive) Lupus (Inactive) Mesenteric artery thrombosis (Inactive) Old [place] (myocardial infarction) (Inactive) PVD (peripheral vascular disease) (Inactive) Renal transplant disorder (Inactive) SAH (subarachnoid hemorrhage) (Inactive) Surgical History Hx of cardiac cath (Inactive) Family History Other Heart disease Social History Preferred Language: Argentine Communication Ability: Effective Kettle Cook Required: No Beliefs That Will Affect Care: None Current Living Situation: Spouse and Family Other Information That Helps Us Care for You: No Feels Safe at Home: Yes Safety Concerns: Feels Safe At This Time Smoking Status: Never smoker Second Hand Exposure: No ; Hx Alcohol Use: Yes Alcohol type: other Hx Substance Use: No Review of Systems See HPI for pertinent positives & negatives. and A total of 10 systems reviewed and were otherwise negative Physical Exam Vital Signs Vital Signs - 24 hr 06/13/19 13:35 06/13/19 13:48 06/13/19 13:49 Temperature 36.8 C Temperature Source Oral Sepsis Recent Fever Within 48 Hours No Sepsis Action Taken by Nursing No Action Required Pulse Rate 151 H 134 H 132 H Pulse Rate [Apical] Pulse Rate from SpO2 Sensor Pulse Rhythm [Apical] Respiratory Rate 20 18 25 H Respiratory Effort / Characteristics Non-Labored Spontaneous Respiratory Depth Normal Respiratory Pattern Blood Pressure 103/74 123/99 Blood Pressure [Left Arm] Blood Pressure Mean 83 107 Blood Pressure Mean [Left Arm] Blood Pressure Position Sitting Pulse Oximetry 96 Oxygen Delivery Method Room Air 06/13/19 14:00 06/13/19 14:07 06/13/19 15:15 Temperature Temperature Source Sepsis Recent Fever Within 48 Hours Sepsis Action Taken by Nursing Pulse Rate 133 H 129 H Pulse Rate [Apical] 121 H Pulse Rate from SpO2 Sensor 129 H Pulse Rhythm [Apical] Regular Respiratory Rate 20 19 19 Respiratory Effort / Characteristics Non-Labored Spontaneous Respiratory Depth Normal Respiratory Pattern Regular Blood Pressure 113/75 Blood Pressure [Left Arm] 121/69 Blood Pressure Mean 87 Blood Pressure Mean [Left Arm] 86 Blood Pressure Position Pulse Oximetry 96 99 Oxygen Delivery Method Room Air GENERAL: alert, pale-appearing, well nourished, no distress, non-toxic EYE EXAM: normal conjunctiva, PERRL and EOM's grossly intact OROPHARYNX: no exudate, no erythema, lips, buccal mucosa, and tongue normal and mildly dry mucous membranes NECK: supple, no nuchal rigidity, no adenopathy, non-tender LUNGS: Clear to auscultation. Normal chest wall mechanics, no w/r/r HEART: Tachycardic, no murmurs, S1 normal and S2 normal ABDOMEN: abdomen soft, non-tender, normo-active bowel sounds, no masses, no rebound or guarding. RECTAL: No anal fissures, no thrombosed hemorrhoids, melenic stool in rectal vault, heme positive on guaiac testing. BACK: Back is symmetrical on inspection and there is no deformity, no midline tenderness, no CVA tenderness. SKIN: no rashes and no bruising UPPER EXTREMITIES: upper extremities are grossly normal. FROM, nml pulses b/l. LOWER EXTREMITIES: No pitting edema. FROM, nml pulses b/l. NEURO EXAM: Normal sensorium, cranial nerves II-XII grossly intact, normal speech, no gross weakness of arms, no gross weakness of legs. Course 1347: Past medical records reviewed. The patient was evaluated in room A10. A complete history and physical exam was performed. 1431: I reevaluated the patient and she appears to be comfortable. I updated the patient on H&H. No need for transfusion. 1433: I performed a rectal exam at this time. Patient also signed the blood consent form. 1511: I discussed the patient's case with Patricia Connor PA-C. She will be evaluating the patient for further evaluation. Consultations Consultation #1: I discussed the patient's case with Patricia Connor PA-C. She will be evaluating the patient for further evaluation. Time: 15:11 Administered Medications Pantoprazole Sodium 40 mg/ (Dextrose) 100 mls @ 20 mls/hr IV Q5H HARIS Stop: 07/13/19 14:59 Last Admin: 06/13/19 16:11 Dose: 20 mls/hr Documented by: [id number] Insulin Aspart (Novolog Flexpen) 0 units SC ACHS HARIS Stop: 07/13/19 17:44 Last Admin: 06/13/19 18:34 Dose: 7 units Documented by: [id number] Cosigned by: [id number] Discontinued Medications Sodium Chloride (Nss 1000ml) 1,000 mls @ 999 mls/hr IV .Q1H1M ONE Stop: 06/13/19 14:55 Last Infusion: 06/13/19 15:39 Dose: 0 mls/hr Documented by: [id number] Admin: 06/13/19 14:07 Dose: 999 mls/hr Documented by: [id number] Pantoprazole Sodium 80 mg/ (Dextrose) 120 mls @ 480 mls/hr IV 1445 HARIS Stop: 06/13/19 14:59 Last Infusion: 06/13/19 15:40 Dose: 0 mls/hr Documented by: [id number] Admin: 06/13/19 15:23 Dose: 480 mls/hr Documented by: [id number] Ceftriaxone Sodium (Rocephin) 1,000 mg in 50 mls @ 100 mls/hr IV NOW STA Stop: 06/13/19 15:39 Last Infusion: 06/13/19 16:16 Dose: 0 mls/hr Documented by: [id number] Admin: 06/13/19 15:40 Dose: 100 mls/hr Documented by: [id number] Ioversol (Optiray 320 100ml) 93 ml IV ONCE PRN PRN Reason: Interaction Checking Stop: 06/17/19 14:39 Last Admin: 06/13/19 14:41 Dose: 93 ml Documented by: [id number] Medical Decision Making Differential Diagnosis Differential diagnosis: Etiologies such as biliary colic, cholecystitis, hepatitis, perihepatitis, pancreatitis, cardiac disease, pancreatitis, gastritis, peptic ulcer disease, appendicitis, ovarian cyst, ovarian torsion, ectopic , pelvic inflammatory disease, cystitis, diverticulitis, mesenteric ischemia, inflammatory bowel disease, ileus, bowel obstruction, aortic pathology, shingles, as well as others were considered. Medical Records Attestation: I reviewed the patient's medical records. Home Medications Current Medication List: was personally reviewed by mi Laboratory Data Attestation: I reviewed the patient's lab results. Result diagrams: 06/13/19 14:01 06/13/19 14:01 Lab Results 06/13/19 06/13/19 06/13/19 Range/Units 14:01 14:01 14:01 WBC 19.63 H (4.8-10.8) K/uL RBC 2.12 L (4.2-5.4) M/uL Hgb 6.2 L* (12.0-16.0) g/dL POC Hgb (12.0-16.0) g/dl Hct 18.8 L* (37-47) % POC Hct (37-47) % MCV 88.7 (80-100) fL MCH 29.2 (25-34) pg MCHC 33.0 (32-36) g/dL RDW Std Deviation 48.6 H (36.4-46.3) fL RDW Coeff of Beatriz 16.3 H (11.5-14.5) % Plt Count 412 H (130-400) K/uL MPV 10.9 H (7.4-10.4) fL Immature Gran % (Auto) 2.5 % Neut % (Auto) 66.6 % Lymph % (Auto) 25.2 % Independence % (Auto) 4.7 % Eos % (Auto) 0.5 % Baso % (Auto) 0.5 % Immature Gran # (Auto) 0.50 H (0.00-0.02) K/uL Neut # (Auto) 13.08 H (1.4-6.5) K/uL Lymph # (Auto) 4.94 H (1.2-3.4) K/uL Independence # (Auto) 0.93 H (0.11-0.59) K/uL Eos # (Auto) 0.09 (0-0.5) K/uL Baso # (Auto) 0.09 (0-0.2) K/uL Absolute Nucleated RBC 0.64 H (0-0) K/uL Nucleated RBC % (auto) 3.3 % Polychromasia 2+ PT 11.2 (9.0-12.0) Seconds INR 1.1 (0.9-1.1) POC Sodium (135-144) mEq/L Sodium 133 L (136-145) mmol/L POC Potassium (3.3-5.0) mEq/L Potassium 3.5 (3.5-5.1) mmol/L POC Chloride (101-112) mEq/L Chloride 97 L (98-107) mmol/L Carbon Dioxide 22 (21-32) mmol/L POC Total CO2 (24-31) mEq/l Anion Gap 14.0 H (3-11) POC Anion Gap (16-25) mmol/L POC BUN (7-18) mg/dl BUN 17 (7-18) mg/dl Creatinine 0.81 (0.6-1.2) mg/dl POC Creatinine (0.6-1.3) mg/dl Est Cr Clr Drug Dosing 104.5 ml/min Est GFR ( Amer) 100.2 Est GFR (Non-Af Amer) 86.5 BUN/Creatinine Ratio 21.5 H (10-20) Glucose 290 H (70-99) mg/dl POC Glucose (other) (70-99) mg/dl Calcium 8.2 L (8.5-10.1) mg/dl POC Ioniz Calcium Angélica (1.12-1.32) mmol/l Magnesium 1.8 (1.8-2.4) mg/dl Total Bilirubin 0.4 (0.2-1) mg/dl AST 12 L (15-37) U/L ALT 30 (12-78) U/L Alkaline Phosphatase 75 (45-117) U/L Troponin I < 0.015 (0-0.045) ng/ml Total Protein 6.6 (6.4-8.2) gm/dl Albumin 3.1 L (3.4-5.0) gm/dl Globulin 3.5 (2.5-4.0) gm/dl Albumin/Globulin Ratio 0.9 (0.9-2) Lipase 142 (73-393) U/L Blood Type Blood Type Recheck Antibody Screen Crossmatch 06/13/19 06/13/19 06/13/19 Range/Units 14:01 14:09 14:27 WBC (4.8-10.8) K/uL RBC (4.2-5.4) M/uL Hgb (12.0-16.0) g/dL POC Hgb 6.5 L* (12.0-16.0) g/dl Hct (37-47) % POC Hct 19 L* (37-47) % MCV (80-100) fL MCH (25-34) pg MCHC (32-36) g/dL RDW Std Deviation (36.4-46.3) fL RDW Coeff of Beatriz (11.5-14.5) % Plt Count (130-400) K/uL MPV (7.4-10.4) fL Immature Gran % (Auto) % Neut % (Auto) % Lymph % (Auto) % Independence % (Auto) % Eos % (Auto) % Baso % (Auto) % Immature Gran # (Auto) (0.00-0.02) K/uL Neut # (Auto) (1.4-6.5) K/uL Lymph # (Auto) (1.2-3.4) K/uL Independence # (Auto) (0.11-0.59) K/uL Eos # (Auto) (0-0.5) K/uL Baso # (Auto) (0-0.2) K/uL Absolute Nucleated RBC (0-0) K/uL Nucleated RBC % (auto) % Polychromasia PT (9.0-12.0) Seconds INR (0.9-1.1) POC Sodium 132 L (135-144) mEq/L Sodium (136-145) mmol/L POC Potassium 3.5 (3.3-5.0) mEq/L Potassium (3.5-5.1) mmol/L POC Chloride 95 L (101-112) mEq/L Chloride (98-107) mmol/L Carbon Dioxide (21-32) mmol/L POC Total CO2 21 L (24-31) mEq/l Anion Gap (3-11) POC Anion Gap 20.0 (16-25) mmol/L POC BUN 17 (7-18) mg/dl BUN (7-18) mg/dl Creatinine (0.6-1.2) mg/dl POC Creatinine 0.5 L (0.6-1.3) mg/dl Est Cr Clr Drug Dosing ml/min Est GFR ( Amer) Est GFR (Non-Af Amer) BUN/Creatinine Ratio (10-20) Glucose (70-99) mg/dl POC Glucose (other) 298 H (70-99) mg/dl Calcium (8.5-10.1) mg/dl POC Ioniz Calcium Angélica 1.07 L (1.12-1.32) mmol/l Magnesium (1.8-2.4) mg/dl Total Bilirubin (0.2-1) mg/dl AST (15-37) U/L ALT (12-78) U/L Alkaline Phosphatase (45-117) U/L Troponin I (0-0.045) ng/ml Total Protein (6.4-8.2) gm/dl Albumin (3.4-5.0) gm/dl Globulin (2.5-4.0) gm/dl Albumin/Globulin Ratio (0.9-2) Lipase (73-393) U/L Blood Type AB Positive Blood Type Recheck AB Positive Antibody Screen NEGATIVE Crossmatch See Detail Imaging Data Radiologist's Impression: Radiology results as stated below per my review and the radiologist's interpretation: CT SCAN OF THE ABDOMEN AND PELVIS WITH IV CONTRAST CLINICAL HISTORY: Generalized abdominal pain. GI bleeding. COMPARISON STUDY: No priors. TECHNIQUE: Following the IV administration of 93 cc of Optiray 320, CT scan of the abdomen and pelvis is performed from the lung bases to the proximal femora. Images are reviewed in the axial, sagittal, and coronal planes. IV contrast was administered without complication. A dose lowering technique was utilized adhering to the principles of ALARA. CT DOSE: 1191.62 mGy.cm FINDINGS: Lung bases: The heart is normal in size and without pericardial effusion. There is a tiny hiatal hernia. The lung bases are clear noting dependent atelectasis. Liver: The contrast-enhanced liver is enlarged, measuring 24.3 cm in length. The liver demonstrates diffusely diminished attenuation consistent with severe hepatic steatosis. Fatty sparing is seen adjacent to gallbladder fossa. There is no intrahepatic biliary ductal dilatation. The hepatic veins and portal veins are patent. Gallbladder: Unremarkable. Spleen: Normal in size and attenuation. Pancreas: Unremarkable. Adrenal glands: Unremarkable. Kidneys: The contrast enhanced kidneys are normal in size and without hydronephrosis. The kidneys enhance symmetrically. A 1.5 cm cyst is noted in the left kidney. Abdominal vasculature: The abdominal aorta is normal in course and caliber noting mild to moderate atherosclerotic calcification. Bowel: The small bowel and colon are normal in course and caliber. The appendix is well-visualized and normal. Peritoneum: There is no intraperitoneal free air or abdominal ascites. There is a small fat-containing umbilical hernia. Lymphadenopathy: None. Pelvic viscera: The bladder, uterus, and adnexa are normal as visualized. Small ovarian follicles are observed. Skeletal structures: No lytic or blastic lesions are seen. IMPRESSION: 1. There are no acute infectious or inflammatory findings in the abdomen or pelvis. 2. Hepatomegaly and severe hepatic steatosis. Electronically signed by: Navjot Mccullough M.D. 06/13/2019 2:53 PM ECG Data Attestation: I personally reviewed and interpreted this ECG as follows: Indication: tachycardia Rate (beats per minute): 130 Rhythm: sinus tachycardia Findings: + other (normal axis, normal interval) and + T-wave inversion (V4 through V6) Blood Pressure Blood Pressure Findings: Normal blood pressure Blood Pressure Disposition: did not require urgent referral MDM Narrative Patient brought in by due to recurrent syncope and pale appearance after previous complaints of abdominal pain. Patient markedly ill-appearing and very pale on initial exam with sinus tachycardia noted on telemetry. Labs drawn and IV started and patient started on IV fluids. [id number] chemistry panel did reveal anemia and a type and screen as well as blood products were ordered. Patient sent for CT of the abdomen and pelvis as a precaution due to prior abdominal pain no prior GI history. Patient does not frequently use aspirin or NSAIDs. No other antiplatelet or anticoagulation. Patient CT of the abdomen and pelvis was reassuring. Patient found to have significant leukocytosis which may be due to pain and stress reaction. Patient afebrile here and I am less suspicious of other occult infectious etiology. Given patient's abdominal pain and reported darker stools, rectal exam was performed which did reveal melena and heme positive stool. Patient started on Protonix bolus and drip while awaiting blood products. With volume repletion, patient's tachycardia slowly began to improve, blood pressure remained stable. Patient remained supine given significant orthostatic symptoms. Patient did have hyperglycemia although does have history of diabetes. Very slight anion gap noted, although I feel this is more likely secondary to dehydration and overall volume status. I feel this is likely to improve strictly with rehydration on a recheck. No other significant renal dysfunction. Patient was made aware of all results, did sign consent form for transfusion of blood products, verbalized understanding of need for additional inpatient management. Case discussed with hospitalist team. Impression & Plan GI bleed, Anemia, Syncope, Tachycardia, Abdominal pain, Leukocytosis, Hyperglycemia Critical Care Time Critical Care Time: Yes Total Critical Care Time: 45 I have personally spent 45 minutes of critical care time in the direct management of this patient. This includes bedside care, interpretation of diagnostic studies, and testing, discussion with consultants, patient, and family members, and other required patient management activities. This 45 minutes is in excess of all separately billable procedures. Discharge Plan Visit Data *Final* Discharge Date/Time: 06/13/19 17:08 Chief Complaint: GI Bleed Stated Complaint: FEELS FAINT, DIZZY ED Provider: Vandana Castelan Discharge Problem: GI bleed, Anemia, Syncope, Tachycardia, Abdominal pain, Leukocytosis, Hyperglycemia Patient Disposition: Admitted As Inpatient Condition: Fair Discharge Instructions Interventions: ED Discharge Assessment Last Done: 06/13/19 17:08 Discharge Problem: GI bleed Qualifiers: GI bleed type/associated pathology: unspecified gastrointestinal hemorrhage type Qualified Code(s): K92.2 - Gastrointestinal hemorrhage, unspecified Anemia Qualifiers: Anemia type: unspecified type Qualified Code(s): D64.9 - Anemia, unspecified Syncope Qualifiers: Syncope type: unspecified Qualified Code(s): R55 - Syncope and collapse Abdominal pain Qualifiers: Abdominal location: unspecified location Qualified Code(s): R10.9 - Unspecified abdominal pain Leukocytosis Qualifiers: Leukocytosis type: unspecified Qualified Code(s): D72.829 - Elevated white blood cell count, unspecified The scribe's documentation has been prepared under my direction and personally reviewed by me in its entirety. I confirm that the note above accurately reflects all work, treatment, procedures, and medical decision making performed by me.
[2019-06-13] MEDS: INSULIN GLARGINE SOLOSTAR 100 UNITS/ML 3 ML PEN SC SCH (20:55)
[2019-06-13] MEDS: SODIUM CHLORIDE 0.9% 1000ML 1,000 ML IV SCH (22:04)
[2019-06-14 00:19] LABS: Hematocrit (blood only) 22.3 % (37-47); Hemoglobin 7.5 g/dL (12.0-16.0); Mean Corpuscular Volume 88.1 fL (80-100); Mean Platelet Volume 10.5 fL (7.4-10.4); Nucleated RBC # (auto) 0.39 K/uL (0-0); Nucleated RBC % (auto) 2.4 %; Platelet Count 286 K/uL (130-400); RDW Standard Deviation 48.6 fL (36.4-46.3); Red Blood Count 2.53 M/uL (4.2-5.4); White Blood Count 16.23 K/uL (4.8-10.8)
[2019-06-14 00:22] LABS: Mean Corpuscular Hgb Conc 33.6 g/dL (32-36)
[2019-06-14 00:40] LABS: BUN Creatinine Ratio 17.5 (10-20); Calcium 7.4 mg/dl (8.5-10.1); Creatinine Clr Calc Pharmacy 128.3 ml/min; Est GFR (African American) 122.5; Est GFR (Non-African American) 105.7; Potassium 3.1 mmol/L (3.5-5.1)
[2019-06-14] MEDS ORDERED: POTASSIUM CHLORIDE 20 MEQ TABCR PO STA (01:06)
[2019-06-14] MEDS ORDERED: SODIUM CHLORIDE 0.9% 250 ML IV PRN (01:06)
[2019-06-14] MEDS: PANTOprazole 40 MG in DEXTROSE 5% 100 ML IV SCH ×5 (01:15→20:55)
[2019-06-14] MEDS: INSULIN ASPART 100 UNITS/ML 3 ML PEN SC SCH ×4 (05:58→20:55)
[2019-06-14 06:13] LABS: Hemoglobin 8.5 g/dL (12.0-16.0); Mean Corpuscular Volume 88.3 fL (80-100); Mean Platelet Volume 10.3 fL (7.4-10.4); Nucleated RBC # (auto) 0.26 K/uL (0-0); Nucleated RBC % (auto) 1.8 %; Platelet Count 266 K/uL (130-400); RDW Coefficient of Variation 15.9 % (11.5-14.5); Red Blood Count 2.83 M/uL (4.2-5.4); White Blood Count 14.69 K/uL (4.8-10.8)
[2019-06-14 06:30] LABS: BUN Creatinine Ratio 18.7 (10-20); Calcium 7.3 mg/dl (8.5-10.1); Creatinine Clr Calc Pharmacy 134.9 ml/min; Est GFR (African American) 124.5; Est GFR (Non-African American) 107.4; Potassium 3.5 mmol/L (3.5-5.1)
[2019-06-14] MEDS: SODIUM CHLORIDE 0.9% 1000ML 1,000 ML IV SCH ×3 (08:16→15:39)
[2019-06-14 08:28] LABS: Estimated Average Glucose 143 mg/dl; Hemoglobin A1C 6.6 % (4.5-5.6)
--- NOTE | 2019-06-14 10:21 | History & Physical Bridge Note ---
Date of Service June 14, 2019 History & Physical Bridge Note I have examined the patient, reviewed the History & Physical and in the interval since the performance of the History & Physical I have noted the following changes of clinical significance: no changes noted Pt denies any more stool output, abd pain, n/v. Received 3U PRBC transfusion last night and Hgb up from 6 -> 8.5g. She remains on PPI gtt. NPO for EGD today. VS, labs reviewed Exam: - AAOx3, in NAD - CTA bilateral lungs - HRR no murmur or gallops noted - Abd soft, non tender, BS hypoactive - No edema on bilateral LE GI will give further recs after EGD is completed Supervising Physician Co-Signing Physician Notes I performed a history and physical examination of the patient, including specifically on physical exam - soft, nontender abdomen. I have discussed the patient's management with Sandy. Please refer to the nurse practitioner's note for the documented findings and plan of care. EGD today
[2019-06-14 12:18] LABS: Hematocrit (blood only) 24.2 % (37-47); Hemoglobin 8.3 g/dL (12.0-16.0); Mean Corpuscular Hgb Conc 34.3 g/dL (32-36); Mean Platelet Volume 10.3 fL (7.4-10.4); Nucleated RBC # (auto) 0.16 K/uL (0-0); Nucleated RBC % (auto) 1.3 %; Platelet Count 252 K/uL (130-400); RDW Coefficient of Variation 16.1 % (11.5-14.5); RDW Standard Deviation 48.8 fL (36.4-46.3); Red Blood Count 2.75 M/uL (4.2-5.4); White Blood Count 12.78 K/uL (4.8-10.8)
[2019-06-14] MEDS ORDERED: ePHEDrine sulfate 50 MG/ML AMP IV PRN (13:25)
[2019-06-14] MEDS ORDERED: ATROPINE SULFATE 0.1 MG/ML 10ML SYR IV PRN (13:25)
--- NOTE | 2019-06-14 13:25 | Anesthesiology Consultation ---
Date of Service June 14, 2019 Assessment & Plan Chart Review Chart Review: Acceptable Risk for Surgery and Patient NOT seen in Pre Admission Testing Consults Requested none ASA ASA4 Proposed Anesthesia Anesthesia Type: MAC Risk / Benefits Reviewed With: PT / POA / Parent / Guardian, Accepts Plan and Informed Consent Obtained History Surgery Operation Date: 06/14/19 09:00 Proposed Procedures p Esophagogastroduodenoscopy Dr Ramos - Arcadio Ramos MD Height/Weight Height: 5 ft 4 in Weight: 108.4 kg Allergies Allergy/AdvReac Type Severity Reaction Status Date / Time No Known Allergies Allergy Unverified 06/13/19 15:04 Medications Home Medications Medication Instructions Recorded Confirmed Last Taken atorvastatin [Lipitor] 40 mg PO HS 09/26/18 06/13/19 06/13/19 hydrochlorothiazide 25 mg PO QAM 09/26/18 06/13/19 06/13/19 lisinopril 10 mg PO QAM 09/26/18 06/13/19 06/13/19 metformin 500 mg PO BIDM 09/26/18 06/13/19 06/13/19 metoprolol succinate 25 mg PO QAM 06/13/19 06/13/19 06/13/19 Active Medications Generic Name Dose Route Start Last Admin Trade Name Freq PRN Reason Stop Dose Admin Pantoprazole Sodium 40 mg/ 100 mls @ 20 mls/hr 06/13/19 15:00 06/14/19 10:57 Dextrose IV 07/13/19 14:59 20 mls/hr Q5H HARIS Administration Sodium Chloride 1,000 mls @ 125 mls/hr 06/13/19 17:25 06/14/19 12:29 Nss 1000ml IV 06/14/19 17:24 Not Given .Q8H HARIS Insulin Aspart 0 units 06/13/19 17:45 06/14/19 12:33 Novolog Flexpen SC 07/13/19 17:44 2 units ACHS HARIS Administration Insulin Glargine 5 units 06/13/19 21:00 06/13/19 20:55 Lantus Solostar Pen SC 07/13/19 20:59 5 units HS HARIS Administration NPO Date Last Intake of Fluids: 06/13/19 Time Last Intake of Fluids: 20:00 Last Intake of Fluids Comment: ice chips Date Last Intake of Solids: 06/13/19 Time Last Intake of Solids: 12:00 Past Medical History Medical History Obesity (Chronic) Hyperlipidemia (Chronic) Diabetes mellitus type 2 in obese (Chronic) HTN (hypertension) (Chronic) History of tooth extraction Anal carcinoma (Inactive) Aortic stenosis (Inactive) Atrial fibrillation (Inactive) ESRD (end stage renal disease) (Inactive) Lupus (Inactive) Mesenteric artery thrombosis (Inactive) Old [place] (myocardial infarction) (Inactive) PVD (peripheral vascular disease) (Inactive) Renal transplant disorder (Inactive) SAH (subarachnoid hemorrhage) (Inactive) Exercise / Class Metabolic Activity III < 4 Walking/Shop/Light housework Past Family History Family History Other Heart disease Past Surgical History Surgical History Hx of cardiac cath (Inactive) Past Anesthesia History No Hx of Anesthesia Complications and No Family Hx of Anesthesia Complications History of PONV No Hx of PONV and No Hx of Motion Sickness Social History Smoking Status: Never smoker Hx Alcohol Use: Yes Alcohol type: other alcohol intake frequency: holidays/special occasions only Hx Substance Use: No Physical Exam Vital Signs Last Vital Signs Temp 37 C 06/14/19 12:50 Pulse 105 H 06/14/19 12:50 Resp 16 06/14/19 12:50 BP 147/90 H 06/14/19 12:50 Pulse Ox 97 06/14/19 12:50 Constitutional + morbidly obese ENMT Mouth: + small oral opening; no dentition abnormality Thyromental Distance: < 3.5 Finger Breadths Mallampati Class: II Neck normal visual inspection and trachea midline; neck extension not limited Respiratory normal respiratory effort Auscultation: lungs clear to auscultation bilaterally Cardiovascular Rate/Rhythm: regular rate and regular rhythm Heart Sounds: no murmur Vessels: no carotid bruit Musculoskeletal Spine: normal cervical ROM Neurologic moves all extremities Motor/Sensory: no sensory deficit Psychiatric Orientation: alert and oriented x 3 Testing Laboratory Results 06/14/19 11:55 06/14/19 05:56 PT 11.2 Seconds (9.0-12.0) 06/13/19 14:01 INR 1.1 (0.9-1.1) 06/13/19 14:01 Hemoglobin A1c 6.6 % (4.5-5.6) H 06/14/19 05:56 Blood Type AB Positive 06/13/19 14:01 Antibody Screen NEGATIVE 06/13/19 14:01 06/14/19 06/14/19 11:54 05:55 POC Glucose 174 H 175 H
[2019-06-14] MEDS ORDERED: LIDOCAINE HCL 2% 2 ML VIAL/AMP(20MG/ML) INFIL ONE (13:43)
[2019-06-14] MEDS ORDERED: PROPOFOL IV EMULSION 10 MG/ML 20 ML VIAL IV ONE (13:43)
[2019-06-14] MEDS ORDERED: GLUCAGON FOR INJ 1 MG VIAL ONE (14:46)
--- NOTE | 2019-06-14 14:50 | Anesthesiology Progress Note ---
Date of Service June 14, 2019 Anesthesia Post Procedure Vital Signs Vital Signs: Temp Pulse Pulse Pulse Resp BP BP 06/14/19 12:50 37 C 105 H 16 147/90 H 06/14/19 11:56 36.5 C 96 H 15 107/64 06/14/19 08:07 96 H 06/14/19 07:53 36.5 C 101 H 17 116/68 06/14/19 04:15 37 C 90 18 121/74 06/14/19 04:14 37 C 90 18 121/74 06/14/19 03:47 37 C 92 H 18 124/68 06/14/19 03:17 37 C 93 H 18 141/66 H 06/14/19 02:47 36.9 C 96 H 18 112/75 06/14/19 02:22 36.9 C 97 H 18 115/77 06/14/19 02:07 36.9 C 103 H 16 116/75 06/14/19 01:52 36.8 C 100 H 16 123/69 06/13/19 23:54 100 H 06/13/19 23:00 36.9 C 105 H 20 108/60 06/13/19 22:05 36.9 C 105 H 16 105/58 L 06/13/19 21:30 36.9 C 105 H 16 103/58 L 06/13/19 21:15 36.9 C 106 H 16 102/55 L 06/13/19 20:59 36.9 C 106 H 16 102/55 L 06/13/19 20:30 36.9 C 108 H 16 96/60 L 06/13/19 20:15 36.9 C 105 H 16 105/61 06/13/19 20:04 36.8 C 110 H 16 104/62 06/13/19 19:59 36.8 C 110 H 16 104/62 06/13/19 19:39 36.8 C 116 H 16 105/68 06/13/19 19:38 36.8 C 117 H 18 105/68 06/13/19 18:45 118 H 06/13/19 18:43 36.8 C 108 H 20 98/62 L 06/13/19 17:43 36.8 C 113 H 19 108/64 06/13/19 17:13 36.9 C 118 H 28 H 116/75 06/13/19 16:58 37.3 C 114 H 18 100/62 06/13/19 16:38 37.6 C H 116 H 17 93/61 L 06/13/19 16:10 121 H 19 115/68 06/13/19 15:15 121 H 19 121/69 Pulse Ox 06/14/19 12:50 97 06/14/19 11:56 94 06/14/19 08:07 06/14/19 07:53 98 06/14/19 04:15 99 06/14/19 04:14 99 06/14/19 03:47 99 06/14/19 03:17 99 06/14/19 02:47 06/14/19 02:22 98 06/14/19 02:07 99 06/14/19 01:52 99 06/13/19 23:54 06/13/19 23:00 98 06/13/19 22:05 99 06/13/19 21:30 98 06/13/19 21:15 97 06/13/19 20:59 97 06/13/19 20:30 99 06/13/19 20:15 98 06/13/19 20:04 99 06/13/19 19:59 99 06/13/19 19:39 95 06/13/19 19:38 98 06/13/19 18:45 06/13/19 18:43 95 06/13/19 17:43 96 06/13/19 17:13 96 06/13/19 16:58 95 06/13/19 16:38 96 06/13/19 16:10 97 06/13/19 15:15 99 Transfer of Care Handoff Completed per policy Notes Mental Status: alert / awake / arousable Patient Amnestic to Procedure: Yes Nausea / Vomiting: adequately controlled Pain: adequately controlled Airway Patency, RR, SpO2: stable & adequate BP & HR: stable & adequate Hydration State: stable & adequate Anesthetic Complications: no major complications apparent
--- NOTE | 2019-06-14 14:52 | GI REPORT ---
Patient Name: Alta Sanders Procedure Date: 06/14/2019 2:15 PM Date of : 1970 Admit Type: Inpatient Age: 49 Gender: Female Attending MD: Arcadio Ramos MD Procedure: Upper GI endoscopy Providers: Arcadio Ramos MD Referring MD: Joce Arvizu Indications: Melena Medicines: Monitored Anesthesia Care Complications: No immediate complications. Estimated Blood Loss: Estimated blood loss: none. Procedure: Pre-Anesthesia Assessment: - Prior to the procedure, a History and Physical was performed, and patient medications and allergies were reviewed. The patient is competent. The risks and benefits of the procedure and the sedation options and risks were discussed with the patient. All questions were answered and informed consent was obtained. Patient identification and proposed procedure were verified by the physician and the nurse in the procedure room. Mental Status Examination: alert and oriented. Airway Examination: normal oropharyngeal airway and neck mobility. Respiratory Examination: clear to auscultation. CV Examination: normal. ASA Grade Assessment: III - A patient with severe systemic disease. After reviewing the risks and benefits, the patient was deemed in satisfactory condition to undergo the procedure. The anesthesia plan was to use monitored anesthesia care (MAC). Immediately prior to administration of medications, the patient was re-assessed for adequacy to receive sedatives. The heart rate, respiratory rate, oxygen saturations, blood pressure, adequacy of pulmonary ventilation, and response to care were monitored throughout the procedure. The physical status of the patient was re-assessed after the procedure. After obtaining informed consent, the endoscope was passed under direct vision. Throughout the procedure, the patient's blood pressure, pulse, and oxygen saturations were monitored continuously. The Endoscope was introduced through the mouth, and advanced to the second part of duodenum. The upper GI endoscopy was accomplished without difficulty. The patient tolerated the procedure well. Findings: The examined esophagus was normal. A single 30 mm firm submucosal lesion was found in the gastric antrum. There was a non-bleeding cratered ulcer on the lesion with a visible vessel. The ulcer was 15 mm in largest dimension. Coagulation for hemostasis using bipolar probe was successful. The duodenal bulb and second portion of the duodenum were normal. Impression: - Normal esophagus. 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 The ulcer base had a visible vessel. This was treated with bipolar cautery. - Normal duodenal bulb and second portion of the duodenum. - No specimens collected. Recommendation: - Return patient to hospital [facility] for ongoing care. - Clear liquid diet today, then advance as tolerated to soft diet. - Use a proton pump inhibitor IV BID for 2 days. - Use Protonix (pantoprazole) 40 mg PO BID for 2 months. - Perform an upper endoscopic ultrasound (UEUS) in 4 weeks for NFA of the lesion. Arcadio Ramos MD 06/14/2019 2:51:52 PM This report has been signed electronically. Note Initiated On: 06/14/2019 2:15 PM Number of Addenda: 0 I attest to the content of the Intraoperative Record and orders documented therein, exceptions below {[id number]}
[2019-06-14] MEDS: ATORVASTATIN 40 MG TAB PO SCH (20:56)
[2019-06-14] MEDS: INSULIN GLARGINE SOLOSTAR 100 UNITS/ML 3 ML PEN SC SCH (20:56)
--- NOTE | 2019-06-14 21:57 | Hospitalist Progress Note ---
Date of Service June 14, 2019 Assessment & Plan (1) GI bleed: Presented with weakness, syncope, melena. Hemoglobin at time of presentation was 6.2. Taking ibuprofen for recent dental work. Placed on intravenous pantoprazole for acid suppression. GI consulted. Received 3 units of packed RBCs. Hemoglobin this morning 8.5. EGD planned for this afternoon. (2) Acute blood loss anemia: Hemoglobin at time of admission was 6.2 with an MCV of 89. Acute blood loss anemia secondary to GI bleeding. Transfused with 3 units of packed RBCs. Follow H&H. (3) Syncope: Probably secondary to orthostasis from GI bleeding. (4) Increased anion gap metabolic acidosis: Anion gap metabolic acidosis with elevated lactate. Lactate acidosis most likely secondary to severe anemia. Lactate level trending down. (5) Leukocytosis: WBC 19,000. No signs/symptoms of infection. Leukocytosis probably secondary to physiologic stress from GI bleed. Follow. (6) HTN (hypertension): History of hypertension usually managed with chlorothiazide, metoprolol, lisinopril. Holding antihypertensive medications in light of GI bleeding and syncope. In the morning with hold parameters. Follow and titrate therapy. (7) Diabetes mellitus type 2 in obese: Diabetes mellitus type 2 usually managed with metformin. Hold metformin during hospital stay. Hemoglobin A1c 6.6. Random blood sugar at time of admission was 279; elevated blood sugar probably secondary to physiologic stress. Fasting blood sugar this morning = 175. Insulin coverage as necessary. (8) DVT prophylaxis: No anticoagulants secondary to GI bleeding. SCDs. Ambulate. (9) Discharge planning issues: Anticipated discharge to home. Family Medicine follow-up with Dr. Bautista. Subjective Recheck for GI bleed and other problems. Patient seen in their room around 1020. Feels much better. No abdominal pain. No nausea or vomiting. Has not passed any stool or blood this morning. Scheduled for EGD this afternoon. Review of Systems: Constitutional- no fever. Cardiac- no chest pain. Pulmonary- no cough or SOB. GI- as noted above. - no urinary symptoms. Otherwise, as noted above. Physical Exam Constitutional: no acute distress Respiratory: no respiratory distress Auscultation: lungs clear to auscultation bilaterally Cardiovascular: Rate/Rhythm: regular rate and regular rhythm Heart Sounds: no gallop, no murmur and no cardiac rub Vessels: no JVD Extremities: no calf tenderness and no edema Gastrointestinal (Abdomen): normal bowel sounds, soft, nontender, no hepatosplenomegaly Skin: no rashes, warm and dry Psychiatric: Orientation: alert and oriented x 3 Results & Data Vital Signs (Past 12 Hours) VS @ 0753: 36.5, 101, 17, 116/68 Laboratory Results Hgb 8.5. FBS 166. Lactate 3.0. (1) GI bleed GI bleed type/associated pathology: unspecified gastrointestinal hemorrhage type Qualified Code(s): K92.2 - Gastrointestinal hemorrhage, unspecified (2) HTN (hypertension) Hypertension type: essential hypertension Qualified Code(s): I10 - Essential (primary) hypertension (3) Syncope Syncope type: unspecified Qualified Code(s): R55 - Syncope and collapse (4) Leukocytosis Leukocytosis type: unspecified Qualified Code(s): D72.829 - Elevated white blood cell count, unspecified
[2019-06-15] MEDS: PANTOprazole 40 MG in DEXTROSE 5% 100 ML IV SCH ×3 (01:43→12:03)
[2019-06-15 07:30] LABS: Hematocrit (blood only) 22.1 % (37-47); Hemoglobin 7.3 g/dL (12.0-16.0); Mean Corpuscular Volume 89.5 fL (80-100); Mean Platelet Volume 9.8 fL (7.4-10.4); Nucleated RBC # (auto) 0.06 K/uL (0-0); Nucleated RBC % (auto) 0.7 %; Platelet Count 236 K/uL (130-400); RDW Coefficient of Variation 16.7 % (11.5-14.5); RDW Standard Deviation 51.1 fL (36.4-46.3); Red Blood Count 2.47 M/uL (4.2-5.4)
[2019-06-15 08:00] LABS: BUN Creatinine Ratio 13.4 (10-20); Calcium 7.4 mg/dl (8.5-10.1); Creatinine Clr Calc Pharmacy 130.8 ml/min; Est GFR (African American) 123.2; Est GFR (Non-African American) 106.3; Potassium 3.1 mmol/L (3.5-5.1)
[2019-06-15] MEDS: METOPROLOL SUCC 25MG EXT REL TAB PO SCH (08:25)
[2019-06-15] MEDS: INSULIN ASPART 100 UNITS/ML 3 ML PEN SC SCH ×4 (08:25→20:13)
--- NOTE | 2019-06-15 08:37 | Anesthesiology Progress Note ---
Date of Service June 15, 2019 Anesthesia Post Procedure Vital Signs Vital Signs: Temp Pulse Pulse Pulse Resp BP BP 06/15/19 07:25 36.8 C 82 17 103/79 06/15/19 03:00 36.7 C 88 13 100/65 06/15/19 01:30 93 H 06/14/19 23:00 36.8 C 100 H 18 131/73 06/14/19 19:32 36.8 C 98 H 19 121/73 06/14/19 16:40 95 H 06/14/19 16:01 92 H 18 06/14/19 16:00 92 H 21 117/84 06/14/19 15:46 95 H 20 06/14/19 15:45 97 H 19 133/83 06/14/19 15:33 99 H 23 06/14/19 15:32 36.9 C 99 H 19 144/86 H 06/14/19 15:15 99 H 16 132/83 06/14/19 15:00 106 H 16 135/86 06/14/19 14:45 100 H 16 104/67 06/14/19 12:50 37 C 105 H 16 147/90 H 06/14/19 11:56 36.5 C 96 H 15 107/64 Pulse Ox 06/15/19 07:25 97 06/15/19 03:00 95 06/15/19 01:30 06/14/19 23:00 93 06/14/19 19:32 97 06/14/19 16:40 06/14/19 16:01 96 06/14/19 16:00 98 06/14/19 15:46 97 06/14/19 15:45 97 06/14/19 15:33 99 06/14/19 15:32 97 06/14/19 15:15 96 06/14/19 15:00 96 06/14/19 14:45 97 06/14/19 12:50 97 06/14/19 11:56 94 Notes Mental Status: alert / awake / arousable and participated in evaluation Nausea / Vomiting: adequately controlled Pain: adequately controlled Airway Patency, RR, SpO2: stable & adequate BP & HR: stable & adequate Hydration State: stable & adequate
--- NOTE | 2019-06-15 09:24 | Gastroenterology Progress Note ---
Date of Service June 15, 2019 Assessment & Plan (1) Anemia: (2) Black stools: Pt is a 49 y/o who presented w leukocytosis, symptomatic anemia, black loose stools x 1. CT abd/pelvis w/o acute processes though noted to have hepatomegaly and hepatic steatosis. Hx of NSAIDs use following recent wisdom teeth extraction. 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 + ulcer base w visible vessel treated w bipolar cautery. Normal duodenum. - FL diet; then advance to soft - PPI gtt till today, then convert to Protonix 40mg BID x 6 weeks then once daily - Avoid NSAIDs, ETOH - Plan for EUS w FNA for eval of stomach lesion in about 4 week's time which we will arrange - Continue to closely monitor H/H and for signs of GI bleeding Supervising Physician Co-Signing Physician Notes I performed a history and physical examination of the patient, including specifically on physical exam - soft, nontender abdomen. I have discussed the patient's management with Sandy. Please refer to the nurse practitioner's note for the documented findings and plan of care. No evidence of recurrent GI bleeding. CT scan addended and report the gastric submucosal mass. Plan: EUS/FNA as OP I arranged for her to see Oncology surgery as OP for resection. PO PPI BID Advance diet Subjective Pt did well overnight. Denies any abd pain, n/v, not passing any stools. Tolerating CL diet. H/H slightly decreased Review of Systems Review of Systems: All systems reviewed & are unremarkable except as noted in HPI & below Physical Exam Constitutional: WD/WN, vitals as above well groomed, cooperative and comfortable Eyes: PERRL, conjunctivae normal, anicteric sclerae ENMT: external ear and nose normal, oropharynx normal Respiratory: normal respiratory effort, lungs clear to auscultation Cardiovascular: RRR, no murmur, no edema Gastrointestinal (Abdomen): normal bowel sounds, soft, nontender, no hepatosplenomegaly Skin: no rashes, warm and dry no jaundice Psychiatric: A+Ox3, euthymic affect Lymphatic: no lymphedema Results & Data Vital Signs (Past 12 Hours) Vital Signs Temp Pulse Pulse Resp BP Pulse Ox 06/15/19 07:25 36.8 C 82 17 103/79 97 06/15/19 03:00 36.7 C 88 13 100/65 95 06/15/19 01:30 93 H 06/14/19 23:00 36.8 C 100 H 18 131/73 93 (1) Anemia Anemia type: unspecified type Qualified Code(s): D64.9 - Anemia, unspecified
[2019-06-15] MEDS ORDERED: SODIUM CHLORIDE 0.9% 250 ML IV PRN (10:42)
[2019-06-15] MEDS ORDERED: FUROSEMIDE 20 MG in SYRINGE 0 ML IV ONE (10:42)
[2019-06-15] MEDS: POTASSIUM CHLORIDE 10 MEQ TABCR PO SCH ×2 (14:44→20:14)
[2019-06-15 16:12] LABS: Hematocrit (blood only) 29.7 % (37-47); Hemoglobin 9.8 g/dL (12.0-16.0)
--- NOTE | 2019-06-15 18:46 | Hospitalist Progress Note ---
Date of Service June 15, 2019 Assessment & Plan (1) GI bleed: Dr. Wharton's notes: Presented with weakness, syncope, melena. Hemoglobin at time of presentation was 6.2. Taking ibuprofen for recent dental work. Placed on intravenous pantoprazole for acid suppression. GI consulted. Status post EGD 06/14/2019: Positive gastric ulcer Hemoglobin today 7.3 No signs of active GI bleeding so far On 1 unit of packed RBCs ordered Continue Protonix IV drip today per GI Anticipate transition to Protonix p.o. twice a day tomorrow (2) Acute blood loss anemia: Anemia panel ordered Management of anemia) #1 (3) Syncope: Probably secondary to orthostasis from GI bleeding. Blood pressure stable (4) Increased anion gap metabolic acidosis: Per Dr. Paredes's notes: Anion gap metabolic acidosis with elevated lactate. Lactate acidosis most likely secondary to severe anemia. Lactate level trending down. (5) Leukocytosis: WBC 19,000 Leukocytosis probably secondary to physiologic stress from GI bleed. --Leukocytosis resolved --No signs of active infection at this time (6) HTN (hypertension): Usually on chlorothiazide, metoprolol, lisinopril. Hold above meds --BP stable monitor (7) Diabetes mellitus type 2 in obese: Per Dr. Beckwith's notes: Diabetes mellitus type 2 usually managed with metformin. Hold metformin during hospital stay. Hemoglobin A1c 6.6. Random blood sugar at time of admission was 279; elevated blood sugar probably secondary to physiologic stress. Insulin coverage as necessary. (8) DVT prophylaxis: No anticoagulants secondary to GI bleeding. SCDs. Ambulate. (9) Discharge planning issues: Anticipated discharge to home tomorrow when cleared by GI Family Medicine follow-up with Dr. Bautista. Subjective Follow-up for anemia, symptomatic Seen resting in bed, comfortable, in good spirits, States she feels much better overall Still feels somewhat weak but much better Denies chest pain, shortness of breath, dizziness Had nonbloody bowel movement yesterday Denies abdominal pain, nausea No other symptoms Review of Systems Review of Systems: All systems reviewed & are unremarkable except as noted in HPI & below Physical Exam Physical Exam: General- oriented x 3, not in distress, speaks in sentences with no effort or accessory muscle use Head- atraumatic Eyes- PERRL, EOMI, anicteric ENT- oropharynx clear Neck- supple, no JVD, no adenopathy, no thyromegaly; carotids +2/2, no bruits appreciated Lungs- clear to auscultation bilaterally, no rales/wheezes Heart- normal rate, regular rhythm; no murmur, no gallop, no rub appreciated Abdomen- normal bowel sounds, nondistended, soft, nontender, no masses or hepatosplenomegaly Extremities- no pretibial edema, no calf tenderness; peripheral pulses intact Neuro- alert, oriented x 3; CN 2-12 grossly intact; motor 5/5 bilaterally;sensation 100% on all extremities; no other gross focal neurologic deficits Skin- warm & dry Results & Data Vital Signs (Past 12 Hours) Vital Signs Temp Pulse Pulse Resp BP BP Pulse Ox 06/15/19 16:00 101 H 06/15/19 15:58 36.8 C 95 H 18 122/91 95 06/15/19 14:40 36.8 C 101 H 19 126/98 98 06/15/19 13:42 36.8 C 99 H 19 122/77 99 06/15/19 12:42 36.8 C 101 H 20 116/67 98 06/15/19 12:12 36.7 C 98 H 23 137/77 97 06/15/19 11:57 36.8 C 102 H 21 111/88 97 06/15/19 11:34 36.8 C 93 H 19 134/84 96 06/15/19 08:00 87 06/15/19 07:25 36.8 C 82 17 103/79 97 (1) GI bleed GI bleed type/associated pathology: unspecified gastrointestinal hemorrhage type Qualified Code(s): K92.2 - Gastrointestinal hemorrhage, unspecified (2) Syncope Syncope type: unspecified Qualified Code(s): R55 - Syncope and collapse (3) Leukocytosis Leukocytosis type: unspecified Qualified Code(s): D72.829 - Elevated white blood cell count, unspecified (4) HTN (hypertension) Hypertension type: essential hypertension Qualified Code(s): I10 - Essential (primary) hypertension
[2019-06-15] MEDS: PANTOprazole 40 MG TAB PO SCH (20:14)
[2019-06-15] MEDS: INSULIN GLARGINE SOLOSTAR 100 UNITS/ML 3 ML PEN SC SCH (20:14)
[2019-06-15] MEDS: ATORVASTATIN 40 MG TAB PO SCH (20:15)
[2019-06-16 06:40] LABS: Basophils # (auto) 0.04 K/uL (0-0.2); Basophils % (auto) 0.5 %; Eosinophils # (auto) 0.21 K/uL (0-0.5); Eosinophils % (auto) 2.8 %; Hematocrit (blood only) 27.3 % (37-47); Immature Granulocytes # (auto) 0.09 K/uL (0.00-0.02); Immature Granulocytes % (auto) 1.2 %; Lymphocytes # (auto) 2.38 K/uL (1.2-3.4); Lymphocytes % (auto) 32.1 %; Mean Corpuscular Volume 88.9 fL (80-100); Monocytes # (auto) 0.37 K/uL (0.11-0.59); Neutrophils # (auto) 4.33 K/uL (1.4-6.5); Neutrophils % (auto) 58.4 %; Nucleated RBC % (auto) 1.3 %; Platelet Count 249 K/uL (130-400); RDW Coefficient of Variation 16.4 % (11.5-14.5); RDW Standard Deviation 49.7 fL (36.4-46.3); Red Blood Count 3.07 M/uL (4.2-5.4); White Blood Count 7.42 K/uL (4.8-10.8)
[2019-06-16 07:10] LABS: BUN Creatinine Ratio 14.9 (10-20); Calcium 7.7 mg/dl (8.5-10.1); Creatinine Clr Calc Pharmacy 141.8 ml/min; Est GFR (African American) 126.5; Est GFR (Non-African American) 109.1; Potassium 3.5 mmol/L (3.5-5.1)
[2019-06-16 08:21] LABS: Folate (Folic Acid) 9.06 ng/ml (>5.38)
[2019-06-16] MEDS: METOPROLOL SUCC 25MG EXT REL TAB PO SCH (08:34)
[2019-06-16] MEDS: PANTOprazole 40 MG TAB PO SCH (08:35)
[2019-06-16] MEDS: POTASSIUM CHLORIDE 10 MEQ TABCR PO SCH (08:35)
[2019-06-16] MEDS: INSULIN ASPART 100 UNITS/ML 3 ML PEN SC SCH (08:36)
--- NOTE | 2019-06-16 09:33 | Gastroenterology Progress Note ---
Date of Service June 16, 2019 Assessment & Plan (1) Anemia: (2) Black stools: Pt is a 49 y/o who presented w leukocytosis, symptomatic anemia, black loose stools x 1. CT abd/pelvis w/o acute processes though noted to have hepatomegaly and hepatic steatosis. Hx of NSAIDs use following recent wisdom teeth extraction. 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 + ulcer base w visible vessel treated w bipolar cautery. Normal duodenum. - FL diet; then advance to soft - PPI gtt till today, then convert to Protonix 40mg BID x 6 weeks then once daily - Avoid NSAIDs, ETOH - Plan for EUS w FNA for eval of stomach lesion in about 4 week's time which we will arrange - Continue to closely monitor H/H and for signs of GI bleeding Subjective Pt did well overnight. Denies any abd pain, n/v, not passing any stools. Tolerating CL diet. H/H slightly decreased Physical Exam Constitutional: WD/WN, vitals as above well groomed, cooperative and comfortable Eyes: PERRL, conjunctivae normal, anicteric sclerae ENMT: external ear and nose normal, oropharynx normal Respiratory: normal respiratory effort, lungs clear to auscultation Cardiovascular: RRR, no murmur, no edema Gastrointestinal (Abdomen): normal bowel sounds, soft, nontender, no hepatosplenomegaly Skin: no rashes, warm and dry no jaundice Psychiatric: A+Ox3, euthymic affect Lymphatic: no lymphedema Results & Data Vital Signs (Past 12 Hours) Vital Signs Temp Pulse Pulse Resp BP Pulse Ox 06/16/19 08:20 37.5 C 96 H 17 125/81 97 06/16/19 04:00 36.8 C 85 18 113/77 97 06/16/19 00:00 90 06/15/19 23:00 36.8 C 90 17 117/76 97 (1) Anemia Anemia type: unspecified type Qualified Code(s): D64.9 - Anemia, unspecified
--- NOTE | 2019-06-16 09:37 | Gastroenterology Progress Note ---
Date of Service June 16, 2019 Assessment & Plan (1) Anemia: (2) Black stools: Pt is a 49 y/o who presented w leukocytosis, symptomatic anemia, black loose stools x 1. CT abd/pelvis w/o acute processes though noted to have hepatomegaly and hepatic steatosis. Hx of NSAIDs use following recent wisdom teeth extraction. 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 + ulcer base w visible vessel treated w bipolar cautery. Normal duodenum. - Soft diet - Protonix 40mg BID x 6 weeks then once daily - Avoid NSAIDs, ETOH - Plan for EUS w FNA for eval of stomach lesion in about 4 week's time which we will help arrange. We have also arranged for her to be evaluated by GI surgery. - Continue to closely monitor H/H and for signs of GI bleeding - No contraindication for DC home from GI standpoint Supervising Physician Co-Signing Physician Notes I have discussed the patient's management with Sandy. Please refer to the nurse practitioner's note for the documented findings and plan of care. Subjective Pt tolerating soft diet, w/o any more signs of GI bleeding. Passing flatus, no stools. Denies any abd pain, n/v. H/H improving. Review of Systems Review of Systems: All systems reviewed & are unremarkable except as noted in HPI & below Physical Exam Constitutional: WD/WN, vitals as above well groomed, cooperative and comfortable Eyes: PERRL, conjunctivae normal, anicteric sclerae ENMT: external ear and nose normal, oropharynx normal Respiratory: normal respiratory effort, lungs clear to auscultation Cardiovascular: RRR, no murmur, no edema Gastrointestinal (Abdomen): normal bowel sounds, soft, nontender, no hepatosplenomegaly Skin: no rashes, warm and dry no jaundice Psychiatric: A+Ox3, euthymic affect Lymphatic: no lymphedema Results & Data Vital Signs (Past 12 Hours) Vital Signs Temp Pulse Pulse Resp BP Pulse Ox 06/16/19 08:20 37.5 C 96 H 17 125/81 97 06/16/19 04:00 36.8 C 85 18 113/77 97 06/16/19 00:00 90 06/15/19 23:00 36.8 C 90 17 117/76 97 (1) Anemia Anemia type: unspecified type Qualified Code(s): D64.9 - Anemia, unspecified
--- NOTE | 2019-06-16 10:24 | Hospitalist Progress Note ---
Date of Service June 16, 2019 Assessment & Plan (1) GI bleed: GI bleed likely secondary to large ulcerated submucosal lesion in the gastric antrum ' notes: Presented with weakness, syncope, melena. Hemoglobin at time of presentation was 6.2. Taking ibuprofen for recent dental work. Placed on intravenous pantoprazole for acid suppression. GI consulted. Status post EGD 06/14/2019: - Normal esophagus. 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 The ulcer base had a visible vessel. This was treated with bipolar cautery. - Normal duodenal bulb and second portion of the duodenum. - No specimens collected. Patient has received a total of 4 units of packed RBCs Hemoglobin remained stable at around 9 No recurrence of melena or hematochezia while admitted Symptoms also resolved GI recommends: - Protonix 40mg BID x 6 weeks then once daily - Avoid NSAIDs, ETOH - Plan for EUS w FNA for eval of stomach lesion in about 4 week's time , also arranged for her to be evaluated by GI surgery. Follow-up closely with actuarial manager Dr. Espinoza Momin, FAISAL Schmitt Repeat CBC on follow-up with primary care physician next week (2) Acute blood loss anemia: Anemia panel Iron 44 TIBC 326 Transferrin 265 Ferritin 119 Vitamin B12 105 Folate 9 Management of anemia) #1 Monitor iron level (3) Syncope: Probably secondary to orthostasis from GI bleeding. Management of anemia per #1 Lisinoprilhydrochlorothiazide discontinued, blood pressure stable continue blood pressure monitoring as outpatient (4) Increased anion gap metabolic acidosis: Per Dr. Manley notes: Anion gap metabolic acidosis with elevated lactate. Lactate acidosis most likely secondary to severe anemia. Lactate level trended down (5) Leukocytosis: WBC 19,000 Leukocytosis probably secondary to physiologic stress from GI bleed. --Leukocytosis resolved --No signs of active infection at this time (6) HTN (hypertension): Usually on chlorothiazide, metoprolol, lisinopril. Lisinopril and hydrochlorothiazide discontinued --BP stable while only on metoprolol, continue to monitor and titrate blood pressure medications accordingly (7) Diabetes mellitus type 2 in obese: Per Dr. Manley notes: Diabetes mellitus type 2 usually managed with metformin. Hemoglobin A1c 6.6 Continue usual metformin (8) Hepatomegaly: With hepatic steatosis Please refer to full CAT scan report Continue to monitor and follow-up as an outpatient (9) Hypokalemia: Admitted with potassium 3.1 Replaced Potassium on discharge 3.5 Discharge on potassium 20 mEq daily x7 days Repeat basic metabolic profile on follow-up with PCP next week (10) Discharge planning issues: Follow-up with Dr. Sue on Thursday, June 20, 2019 at 3:45 PM Follow-up with gastroenterology clinic as scheduled (11) DVT prophylaxis: No anticoagulants secondary to GI bleeding. SCDs. Ambulate. Subjective Follow-up for symptomatic anemia, GI bleed Seen sitting up in bedside chair, comfortable, in good spirits States she feels fine well No melena, hematochezia abdominal pain, nausea vomiting Tolerating diet well Ambulating in the room with no problems, no chest pain or shortness of breath no palpitations no dizziness Denies any other symptoms That she is back to her baseline and would like to be discharged today Review of Systems Review of Systems: All systems reviewed & are unremarkable except as noted in HPI & below Physical Exam Physical Exam: General- oriented x 3, not in distress, speaks in sentences with no effort or accessory muscle use Eyes- anicteric Neck- no JVD Lungs- clear breath sounds, no crackles or wheezing bilaterally Heart- normal rate, regular rhythm; no murmurs Abdomen- normal bowel sounds, nondistended, soft, nontender Extremities- no pretibial edema, no calf tenderness Neuro- alert, oriented x 3; no gross focal neurologic deficits Skin- warm & dry Results & Data Vital Signs (Past 12 Hours) Vital Signs Temp Pulse Pulse Resp BP Pulse Ox 06/16/19 08:20 37.5 C 96 H 17 125/81 97 06/16/19 04:00 36.8 C 85 18 113/77 97 06/16/19 00:00 90 06/15/19 23:00 36.8 C 90 17 117/76 97 Laboratory Results Laboratory Results - last 24 hr 06/13/19 06/15/19 06/15/19 14:01 11:21 15:51 WBC RBC Hgb 9.8 L Hct 29.7 L MCV MCH MCHC RDW Std Deviation RDW Coeff of Beatriz Plt Count MPV Immature Gran % (Auto) Neut % (Auto) Lymph % (Auto) Emmons % (Auto) Eos % (Auto) Baso % (Auto) Immature Gran # (Auto) Neut # (Auto) Lymph # (Auto) Emmons # (Auto) Eos # (Auto) Baso # (Auto) Absolute Nucleated RBC Nucleated RBC % (auto) Sodium Potassium Chloride Carbon Dioxide Anion Gap BUN Creatinine Est Cr Clr Drug Dosing Est GFR ( Amer) Est GFR (Non-Af Amer) BUN/Creatinine Ratio Glucose POC Glucose 155 H Calcium Iron TIBC Transferrin Ferritin Albumin Vitamin B12 Folate Blood Type AB Positive Antibody Screen NEGATIVE Crossmatch See Detail 06/15/19 06/15/19 06/16/19 16:16 20:12 06:05 WBC RBC Hgb Hct MCV MCH MCHC RDW Std Deviation RDW Coeff of Beatriz Plt Count MPV Immature Gran % (Auto) Neut % (Auto) Lymph % (Auto) Emmons % (Auto) Eos % (Auto) Baso % (Auto) Immature Gran # (Auto) Neut # (Auto) Lymph # (Auto) Emmons # (Auto) Eos # (Auto) Baso # (Auto) Absolute Nucleated RBC Nucleated RBC % (auto) Sodium 141 Potassium 3.5 Chloride 108 H Carbon Dioxide 26 Anion Gap 7.0 BUN 9 Creatinine 0.59 L Est Cr Clr Drug Dosing 141.8 Est GFR ( Amer) 126.5 Est GFR (Non-Af Amer) 109.1 BUN/Creatinine Ratio 14.9 Glucose 146 H POC Glucose 146 H 144 H Calcium 7.7 L Iron 44 TIBC 326 Transferrin 265 Ferritin 119.0 Albumin Vitamin B12 Folate Blood Type Antibody Screen Crossmatch 06/16/19 06/16/19 06/16/19 06:05 06:05 06:15 WBC 7.42 RBC 3.07 L Hgb 9.0 L Hct 27.3 L MCV 88.9 MCH 29.3 MCHC 33.0 RDW Std Deviation 49.7 H RDW Coeff of Beatriz 16.4 H Plt Count 249 MPV 10.0 Immature Gran % (Auto) 1.2 Neut % (Auto) 58.4 Lymph % (Auto) 32.1 Emmons % (Auto) 5.0 Eos % (Auto) 2.8 Baso % (Auto) 0.5 Immature Gran # (Auto) 0.09 H Neut # (Auto) 4.33 Lymph # (Auto) 2.38 Emmons # (Auto) 0.37 Eos # (Auto) 0.21 Baso # (Auto) 0.04 Absolute Nucleated RBC 0.10 H Nucleated RBC % (auto) 1.3 Sodium Potassium Chloride Carbon Dioxide Anion Gap BUN Creatinine Est Cr Clr Drug Dosing Est GFR ( Amer) Est GFR (Non-Af Amer) BUN/Creatinine Ratio Glucose POC Glucose Calcium Iron TIBC Transferrin Ferritin Albumin Pending Vitamin B12 405 Folate 9.06 Blood Type Antibody Screen Crossmatch 06/16/19 07:35 WBC RBC Hgb Hct MCV MCH MCHC RDW Std Deviation RDW Coeff of Beatriz Plt Count MPV Immature Gran % (Auto) Neut % (Auto) Lymph % (Auto) Emmons % (Auto) Eos % (Auto) Baso % (Auto) Immature Gran # (Auto) Neut # (Auto) Lymph # (Auto) Emmons # (Auto) Eos # (Auto) Baso # (Auto) Absolute Nucleated RBC Nucleated RBC % (auto) Sodium Potassium Chloride Carbon Dioxide Anion Gap BUN Creatinine Est Cr Clr Drug Dosing Est GFR ( Amer) Est GFR (Non-Af Amer) BUN/Creatinine Ratio Glucose POC Glucose 159 H Calcium Iron TIBC Transferrin Ferritin Albumin Vitamin B12 Folate Blood Type Antibody Screen Crossmatch (1) GI bleed GI bleed type/associated pathology: unspecified gastrointestinal hemorrhage type Qualified Code(s): K92.2 - Gastrointestinal hemorrhage, unspecified (2) Syncope Syncope type: unspecified Qualified Code(s): R55 - Syncope and collapse (3) Leukocytosis Leukocytosis type: unspecified Qualified Code(s): D72.829 - Elevated white blood cell count, unspecified (4) HTN (hypertension) Hypertension type: essential hypertension Qualified Code(s): I10 - Essential (primary) hypertension
--- NOTE | 2019-06-16 11:05 | Discharge Summary ---
Date of Service June 16, 2019 Admission HPI Per Admitting Provider 49 year old woman with hypertension, obesity, hyperlipidemia, DM2 who presented with syncopal episode and dark stool today. Patient reported that she developed some mild abdominal pain yesterday. Then this morning, she started having dizziness, worse on getting up from sitting/supine position. She also had dark stools this morning. Had an episode of syncope while coming out of rest room this morning, witnessed by , lasted a few seconds, did not hit her head, not associated with jerky or seizure-like movement. also reported she had similar episode while being wheeled to the ER. Patient reports palpitations, fatigue and nausea. Denied any fevers, chills, vomiting, diarrhea Denied any dysuria, frequency, urgency Denied any cough, chest pain, shortness of breath. Patient reported she had some teeth extraction 3 weeks ago and used ibuprofen for a few days which was her first time taking ibuprofen. Has never been diagnosed of peptic ulcer. Denied smoking or illicit drug use. Takes alcohol occasionally. Last alcohol intake is over 1 month ago. Reports adherence to her medications Admission Exam Per Admitting Provider General: Obese, no acute distress and not ill appearing Eyes: PERRL, +pallore, anicteric sclerae, EOM intact bilaterally ENMT: External ear and nose normal, dry oral mucosa Neck: Normal visual inspection Respiratory: Normal respiratory effort, no respiratory distress, lungs clear to auscultation, no crackles and no wheezes Cardiovascular: Pulse is tachycardic, radial pulse is thready. Heart Sounds: normal S1 and normal S2; no murmurs. Vessels: Pedal pulses present. Extremities: no pedal edema Chest (Breasts): Chest: normal inspection of chest Gastrointestinal (Abdomen): Abdomen is soft, non-tender to palpation, no guarding, no palpable hepatosplenomegaly, normal bowel sounds Musculoskeletal: No cyanosis, all extremities motor strength 5/5 Skin: No rash noted on gross inspection, No ulcers noted Neurologic: Alert and oriented x 3, No focal weakness, sensation grossly intact Psychiatric: Alert and oriented x 3, euthymic affect Lymphatic: No cervical lymphadenopathy Principal Diagnosis ANEMIA SECONDARY TO GI BLEED, FROM ULCERATED GASTRIC LESION Discharge Exam General- oriented x 3, not in distress, speaks in sentences with no effort or accessory muscle use Eyes- anicteric Neck- no JVD Lungs- clear breath sounds, no crackles or wheezing bilaterally Heart- normal rate, regular rhythm; no murmurs Abdomen- normal bowel sounds, nondistended, soft, nontender Extremities- no pretibial edema, no calf tenderness Neuro- alert, oriented x 3; no gross focal neurologic deficits Skin- warm & dry Discharge Data Allergies Allergy/AdvReac Type Severity Reaction Status Date / Time No Known Allergies Allergy Unverified 06/13/19 15:04 Consultations 06/13/19 17:25 Consult Gastroenterology Routine Procedures Performed Operation Date: 06/14/19 09:00 Actual Procedures p EGD Hemostasis - Arcadio Ramos MD DICTATED BY: Arcadio Ramos M.D. Patient Name: Alta Sanders Procedure Date: 06/14/2019 2:15 PM Date of : 1970 Admit Type: Inpatient Age: 49 Gender: Female Attending MD: Arcadio Ramos MD Procedure: Upper GI endoscopy Providers: Arcadio Ramos MD Referring MD: Joce Arvizu Indications: Melena Medicines: Monitored Anesthesia Care Complications: No immediate complications. Estimated Blood Loss: Estimated blood loss: none. Procedure: Pre-Anesthesia Assessment: - Prior to the procedure, a History and Physical was performed, and patient medications and allergies were reviewed. The patient is competent. The risks and benefits of the procedure and the sedation options and risks were discussed with the patient. All questions were answered and informed consent was obtained. Patient identification and proposed procedure were verified by the physician and the nurse in the procedure room. Mental Status Examination: alert and oriented. Airway Examination: normal oropharyngeal airway and neck mobility. Respiratory Examination: clear to auscultation. CV Examination: normal. ASA Grade Assessment: III - A patient with severe systemic disease. After reviewing the risks and benefits, the patient was deemed in satisfactory condition to undergo the procedure. The anesthesia plan was to use monitored anesthesia care (MAC). Immediately prior to administration of medications, the patient was re-assessed for adequacy to receive sedatives. The heart rate, respiratory rate, oxygen saturations, blood pressure, adequacy of pulmonary ventilation, and response to care were monitored throughout the procedure. The physical status of the patient was re-assessed after the procedure. After obtaining informed consent, the endoscope was passed under direct vision. Throughout the procedure, the patient's blood pressure, pulse, and oxygen saturations were monitored continuously. The Endoscope was introduced through the mouth, and advanced to the second part of duodenum. The upper GI endoscopy was accomplished without difficulty. The patient tolerated the procedure well. Findings: The examined esophagus was normal. A single 30 mm firm submucosal lesion was found in the gastric antrum. There was a non-bleeding cratered ulcer on the lesion with a visible vessel. The ulcer was 15 mm in largest dimension. Coagulation for hemostasis using bipolar probe was successful. The duodenal bulb and second portion of the duodenum were normal. Impression: - Normal esophagus. 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 The ulcer base had a visible vessel. This was treated with bipolar cautery. - Normal duodenal bulb and second portion of the duodenum. - No specimens collected. Recommendation: - Return patient to hospital [facility] for ongoing care. - Clear liquid diet today, then advance as tolerated to soft diet. - Use a proton pump inhibitor IV BID for 2 days. - Use Protonix (pantoprazole) 40 mg PO BID for 2 months. - Perform an upper endoscopic ultrasound (UEUS) in 4 weeks for NFA of the lesion. Arcadio Ramos MD 06/14/2019 2:51:52 PM Ordered Studies 06/13/19 13:55 CT abd pelvis IV con only Stat ADDENDUM ADDENDUM: The patient reportedly has a lesion in the gastric antrum. There is questionable asymmetric wall thickening and enhancement in this region (axial im age #172). This is not well assessed by CT and correlation with endoscopy results will be required. Electronically signed by: Navjot Mccullough M.D. 06/15/2019 8:[address] SCAN OF THE ABDOMEN AND PELVIS WITH IV CONTRAST CLINICAL HISTORY: Generalized abdominal pain. GI bleeding. COMPARISON STUDY: No priors. TECHNIQUE: Following the IV administration of 93 cc of Optiray 320, CT scan of the abdomen and pelvis is performed from the lung bases to the proximal femora. Images are reviewed in the axial, sagittal, and coronal planes. IV contrast was administered without complication. A dose lowering technique was utilized adhering to the principles of ALARA. CT DOSE: 1191.62 mGy.cm FINDINGS: Lung bases: The heart is normal in size and without pericardial effusion. There is a tiny hiatal hernia. The lung bases are clear noting dependent atelectasis. Liver: The contrast-enhanced liver is enlarged, measuring 24.3 cm in length. The liver demonstrates diffusely diminished attenuation consistent with severe hepatic steatosis. Fatty sparing is seen adjacent to gallbladder fossa. There is no intrahepatic biliary ductal dilatation. The hepatic veins and portal veins are patent. Gallbladder: Unremarkable. Spleen: Normal in size and attenuation. Pancreas: Unremarkable. Adrenal glands: Unremarkable. Kidneys: The contrast enhanced kidneys are normal in size and without hydronephrosis. The kidneys enhance symmetrically. A 1.5 cm cyst is noted in the left kidney. Abdominal vasculature: The abdominal aorta is normal in course and caliber noting mild to moderate atherosclerotic calcification. Bowel: The small bowel and colon are normal in course and caliber. The appendix is well-visualized and normal. Peritoneum: There is no intraperitoneal free air or abdominal ascites. There is a small fat-containing umbilical hernia. Lymphadenopathy: None. Pelvic viscera: The bladder, uterus, and adnexa are normal as visualized. Small ovarian follicles are observed. Skeletal structures: No lytic or blastic lesions are seen. IMPRESSION: 1. There are no acute infectious or inflammatory findings in the abdomen or pelvis. 2. Hepatomegaly and severe hepatic steatosis. Hospital Course (1) GI bleed: GI bleed likely secondary to large ulcerated submucosal lesion in the gastric antrum ' notes: Presented with weakness, syncope, melena. Hemoglobin at time of presentation was 6.2. Taking ibuprofen for recent dental work. Placed on IV Protonix. GI consulted. Status post EGD 06/14/2019: - Normal esophagus. 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 The ulcer base had a visible vessel. This was treated with bipolar cautery. - Normal duodenal bulb and second portion of the duodenum. - No specimens collected. Patient has received a total of 4 units of packed RBCs Hemoglobin remained stable at around 9 No recurrence of melena or hematochezia while admitted Symptoms also resolved GI recommends: - Protonix 40mg BID x 6 weeks then once daily - Avoid NSAIDs, ETOH - Plan for EUS w FNA for eval of stomach lesion in about 4 week's time , also arranged for her to be evaluated by GI surgery. Follow-up closely with pit hoist operator Dr. Espinoza Momin, FAISAL Schmitt Repeat CBC on follow-up with primary care physician next week (2) Acute blood loss anemia: Anemia panel Iron 44 TIBC 326 Transferrin 265 Ferritin 119 Vitamin B12 105 Folate 9 Management of anemia) #1 Monitor iron level (3) Syncope: Probably secondary to orthostasis from GI bleeding. Management of anemia per #1 Lisinoprilhydrochlorothiazide discontinued, blood pressure stable continue blood pressure monitoring as outpatient (4) Increased anion gap metabolic acidosis: Per Dr. Manley notes: Anion gap metabolic acidosis with elevated lactate. Lactate acidosis most likely secondary to severe anemia. Lactate level trended down (5) Leukocytosis: WBC 19,000 Leukocytosis probably secondary to physiologic stress from GI bleed. --Leukocytosis resolved --No signs of active infection at this time (6) HTN (hypertension): Usually on chlorothiazide, metoprolol, lisinopril. Lisinopril and hydrochlorothiazide discontinued --BP stable while only on metoprolol, continue to monitor and titrate blood pressure medications accordingly (7) Diabetes mellitus type 2 in obese: Per Dr. Manley notes: Diabetes mellitus type 2 usually managed with metformin. Hemoglobin A1c 6.6 Continue usual metformin (8) Hepatomegaly: With hepatic steatosis Please refer to full CAT scan report Continue to monitor and follow-up as an outpatient (9) Hypokalemia: Admitted with potassium 3.1 Replaced Potassium on discharge 3.5 Discharge on potassium 20 mEq daily x7 days Repeat basic metabolic profile on follow-up with PCP next week (10) Renal cyst: Was found on CT abdomen: Kidneys: The contrast enhanced kidneys are normal in size and without hydronephrosis. The kidneys enhance symmetrically. A 1.5 cm cyst is noted in the left kidney. Further work-up and follow-up as an outpatient (11) Discharge planning issues: Follow-up with Dr. Sue on Thursday, June 20, 2019 at 3:45 PM Follow-up with gastroenterology clinic as scheduled (12) DVT prophylaxis: No anticoagulants secondary to GI bleeding. SCDs. Ambulate. Total Time Total Time Spent Total Time Spent (In Minutes): 45 minutes Discharge Plan Discharge Items Patient Disposition: Home - Self-Care Reason For Visit: GI BLEED Discharge Diagnosis: ANEMIA SECONDARY TO GASTROINTESTINAL BLEEDING, FROM ULCERATED GASTRIC LESION Condition on Discharge: Good Activity: As commented below Activity Comment: Resume activity gradually as tolerated, no heavy exertion until reevaluated by primary care physician Lifting: Wait until after follow-up appointment Exercise/Sports: Wait until after follow-up appointment Non-emergency contact: Primary Care Provider and Churn Operator Call non-emergency contact if: you have any medication questions, your symptoms worsen and you have a fever Diet: Carb Consistent or DM2 and Heart Healthy Diet Comment: Soft, low fiber diet Addtl Attending Provider Instructions: Follow-up with Dr. Nessa Sue (associate of Dr. Bautista) on Thursday, June 20, 2019 at 3:45 PM. Follow-up with gastroenterology clinic as scheduled. Telephone number [phone]. Call primary care physician or return to the ER immediately if with recurrence of symptoms, black or bloody stools, shortness of breath, weakness, lightheadedness. Your new medications are: Protonix 40 mg twice a day for 6 weeks, then daily (take at least 30 minutes before meal) Potassium 20 mEq daily x7 days Your discontinued medications are: Lisinopril and hydrochlorothiazide No NSAIDs like ibuprofen, naproxen, etc. Always consult with your doctor before starting any new medication. No alcohol, no smoking. Increase potassium rich foods in the diet such as bananas, tomatoes, potatoes. Pending Studies at Discharge: Yes Studies:: Repeat blood work to be ordered by primary care physician on follow-up next week-CBC and basic metabolic panel. Stand-Alone Forms: My [facility] Medications and DC Order Prescriptions: New pantoprazole 40 mg Tablet,Delayed Release (Dr/Ec) 40 mg PO UD Qty: 100 RF: 0 potassium chloride 20 mEq tablet extended release 20 meq PO DAILY 7 Days Qty: 7 RF: 0 Continued metformin 500 mg Tablet Extended Release 24 Hr 500 mg PO BIDM RF: 0 atorvastatin [Lipitor] 40 mg Tablet 40 mg PO HS RF: 0 metoprolol succinate 25 mg tablet extended release 24 hr 25 mg PO QAM RF: 0 Discontinued lisinopril 10 mg Tablet 10 mg PO QAM RF: 0 hydrochlorothiazide 25 mg Tablet 25 mg PO QAM RF: 0 Discharge Orders: Discharge Order (Routine); Ordered 06/16/19 Ordered By: Mehul Milton Admission Data Admit Date/Time: 06/13/19 15:49 Attending Provider: Mehul Milton Admit Provider: Fani Moya I. Primary Care Provider: Joce Bautista Other Providers: Arcadio Ramos ; Sukhjinder Manley Other Interventions: Discharge Summary Assessment (RN) Last Done: 06/14/19 15:22
== END 2019-06-16 12:21 | disposition home or self-care (01) | DRG 378 ==
LOC: ED 13:31 → 2E 15:49 → SUATTDRO 15:49 → 2E 17:08